=== PATIENT | female | born 1945 | race Caucasian/White ===

== ENCOUNTER 2017-03-10 11:15 | Observation (INO) | payer OTHER ==
[~2017-03-10] VITALS: Ht 170.2 cm; Wt 81.3 kg
--- NOTE | ~2017-03-10 | 2DMMODE ---
[facility] [address] [facility] [place] [address] 2 D/M-MODE ECHOCARDIOGRAM Name: RANJANA KOTHARI Room #: 308-P ADM IN M.R.#: [id number] Admission: 03/10/17 Attend Phys: Beth Mujica Discharge: Date of : 49 Date of Service: 03/11/17 1327 Report #: [id number] THIS REPORT FOR: //name// APPROVED REPORT Study performed: 03/11/2017 12:27:35 EXAM: Comprehensive 2D, Doppler, and color-flow Echocardiogram Patient Location: Echo lab Room #: 308 Status: routine Other Information Study Quality: Adequate Indications HTN, murmur, tachycardia, chest pain, DM 2D Dimensions RVDd: 35.60 mm LVEF(%): 53.34 (>50%) IVSd: 9.53 (7-11mm) LVOT Diam: 17.67 (18-24mm) LVDd: 46.33 mm PWd: 9.76 (7-11mm) Ascending Ao: 33.90 (22-36mm) LVDs: 33.63 (25-40mm) Aortic Root: 27.71 mm Trivedi's LVEF: 53.34 % Volumes Left Atrial Volume (Systole) Single Plane 4CH: 52.07 mL Single Plane 2CH: 53.71 mL LA ESV Index: 29.00 mL/m2 Aortic Valve AoV Peak Harsha.: 2.60 m/s AO Peak Gr.: 27.02 mmHg LVOT Max P.20 mmHg AO Mean Gr.: 15.63 mmHg AO V2 Mean: 1.91 m/s LVOT Max V: 1.25 m/s AO V2 VTI: 49.14 cm BROOK Vmax: 1.17 cm2 Mitral Valve E/A Ratio: 0.9 MV Decel. Time: 203.16 ms MV E Max Harsha.: 0.90 m/s MV A Harsha.: 1.00 m/s [facility] [address] [place] [address] 2 D/M-MODE ECHOCARDIOGRAM Name: RANJANA KOTHARI Room #: 308-P [facility] IN ..#: [id number] Admission: 03/10/17 Attend Phys: Beth Mujica Discharge: Date of : 49 Date of Service: 03/11/17 1327 Report #: [id number] MV PHT: 58.92 ms IVRT: 53.06 ms Pulmonary Valve PV Peak Harsha.: 0.92 m/s PV Peak Gr.: 3.36 mmHg Pulmonary Vein P Vein S: 0.82 m/s P Vein A: 0.40 m/s P Vein D: 0.53 m/s P Vein S/D Ratio: 1.55 Tricuspid Valve TR Peak Harsha.: 2.99 m/s RAP Estimate: 5.00 mmHg TR Peak Gr.: 35.70 mmHg PA Pressure: 41.00 mmHg Left Ventricle The left ventricle is normal size. There is normal LV segmental wall motion. There is normal left ventricular wall thickness. Left ventricular systolic function is normal. LVEF is 60%. Mild diastolic dysfunction is present (impaired relaxation pattern). Right Ventricle The right ventricle is normal size. The right ventricular systolic function is normal. Atria Left atrium is mildly dilated. The right atrium size is normal. Aortic Valve Aortic valve is moderately calcified. Trace aortic regurgitation. There is mild to moderate valvular aortic stenosis. Calculated aortic valve area is 1.2 cm2 with maximum pressure gradient of 27 mmHg and mean pressure gradient of 16 mmHg. Mitral Valve The mitral valve is normal in structure. Trace to mild mitral regurgitation. No evidence of mitral valve stenosis. Tricuspid Valve The tricuspid valve is normal in structure. There is mild tricuspid regurgitation. The right atrial pressure is estimated at 5 mmHg. There is mild-moderate pulmonary hypertension with an estimated PAP [place] 40[place]. [place] [address] 2 D/M-MODE ECHOCARDIOGRAM Name: RANJANA KOTHARI Room #: 308[facility] IN M.R.#: [id number] Admission: 03/10/17 Attend Phys: Beth Mujica Discharge: Date of : 49 Date of Service: 03/11/17 1327 Report #: [id number] Pulmonic Valve The pulmonary valve is normal in structure. Trace pulmonic regurgitation. Great Vessels The aortic root is normal in size. The ascending aorta is normal in size. IVC is normal in size and collapses >50% with inspiration. Pericardium There is no pericardial effusion. <Conclusion> The left ventricle is normal size. LVEF is 60%. Left atrium is mildly dilated. Aortic valve is moderately calcified. Trace aortic regurgitation. There is mild to moderate valvular aortic stenosis. Calculated aortic valve area is 1.2 cm2 with maximum pressure gradient of 27 mmHg and mean pressure gradient of 16 mmHg. The mitral valve is normal in structure. Trace to mild mitral regurgitation. The tricuspid valve is normal in structure. There is mild tricuspid regurgitation. The right atrial pressure is estimated at 5 mmHg. There is mild-moderate pulmonary hypertension with an estimated PAP of 40mmHg. Trace pulmonic regurgitation. <ELECTRONICALLY SIGNED> By: Cedric Aparicio MD 03/11/17 1327 26 132 Cedric Aparicio MD /INF
--- NOTE | ~2017-03-10 | EKG ---
[address] [address] ELECTROCARDIOGRAM REPORT Name: TAYERANJANA Room #: 308-P [facility] M.R.#: [id number] Admission: 03/10/17 Attend Phys: Beth Mujica MD Discharge: Date of : 49 Report #: [id number] THIS REPORT FOR: //name// [facility] ED Test Date: 2017-03-10 Test Time: 11:22:46 Pat Name: RANJANA KOTHARI Department: Room: [facility] Gender: F Utility Mechanic: KKODVIKIVI : 1945 Requested By: Evita Callahan Order Number: [id number] MD: Bennett Garcia Measurements Intervals [place] Rate: 110 P: 48 [place]: 147 QRS: 21 QRSD: 74 T: 269 QT: 339 QTc: 459 Interpretive Statements Sinus tachycardia Abnormal R-wave progression, early transition Nonspecific T abnormalities, diffuse leads Compared to ECG 12/02/2016 20:37:34 T-wave abnormality now present Atrial flutter no longer present ST (T wave) deviation no longer present Electronically Signed On 03-10-2017 22:01:35 CDT by Bennett Garcia [email or web address] <ELECTRONICALLY SIGNED> By: Bennett Garcia MD 03/10/17 2201 1122 1122 Bennett Garcia MD /EPI
--- NOTE | ~2017-03-10 | D ---
[facility] [place] [address] DISCHARGE SUMMARY Name: RANJANA KOTHARI Room #: 308-[facility] M.R.#: [id number] Admission: 03/10/17 Attend Phys: Beth Mujica MD Discharge: Date of : 49 Report #: [id number] THIS REPORT FOR: //name// CC: Stevie Mujica DATE OF ADMISSION: 03/10/2017 DATE OF DISCHARGE: 03/11/2017 HISTORY OF PRESENT ILLNESS: The patient is a 71-year-old female with multiple medical problems, who was transferred here from half-way facility for chest pains. The patient has history of coronary artery disease, and he has stents placed x 2. Please refer to the admission H and P for details. HOSPITALIZATION COURSE: The patient was hospitalized at [facility]. Report Writer was consulted. EKG was unremarkable, and cardiac enzymes are negative. Her personnel officer assessment, the patient's clinical presentation is atypical for acute coronary syndrome, and chest pain was reproducible. Cardiac echo is ordered. If negative, no further workup is planned. The patient remained stable overnight, and currently she is chest pain free. If cardiac echo is negative, the patient will be discharged back to half-way facility. DISCHARGE DIAGNOSES: Atypical chest pain, resolved. No evidence of acute coronary syndrome. Cardiac echo is pending at the time of this dictation. Likely etiology is musculoskeletal of GI origin. SECONDARY DIAGNOSES: History of coronary artery disease, status post stents x 2, seizure disorder, diabetes mellitus type 2, anxiety, schizophrenia, frequent falls, anemia, GERD, dyslipidemia, hypothyroidism. DISCHARGE MEDICATIONS: Same as admission medications, please refer to the medication reconciliation list. FOLLOWUP PLAN: Follow up with the primary care physician in 1-2 weeks. <ELECTRONICALLY SIGNED> By: Beth Mujica MD 03/11/17 1807 1158 1319 Beth Mujica MD /nt
[~2017-03-10 11:15] MED LIST: APAP500 PO; ARIPIPRAZOLE5 MG PO; BENADRYL25 MG PO; CARAFATE 1 GM TA1 G1 PO; CLARITIN10 MG PO; COLACE100 MG PO; COZAAR 25 MG TA25 M1 PO; CYCLOBENZAPRINE5 MG PO; FLONASE 0.05%50 MCG PO; FOLIC ACID1 MG PO; HUMALOG100 UNIT/1; IBUPROFEN 800800 M1 PO; IRON325 PO; KEPPRA 500 MG500 M1 PO; LANTUS100 UNIT/M SUBQ; LEVOTHYROXIN0.075 MG PO; LEXAPRO 10 MG T10 M1 PO; LIPITOR40 MG PO; LOTRISONE CREAM15 GM TOP; MAGNESIUM OXID400 MG PO; METFORMIN HCL500 MG PO; MILK OF MA2400 MG/10 PO; MIRALAX17 GM PO; MUSCLE RUB90 GM; NYAMYC15 GM; PATADAY2.5 ML OPHTHALMIC; PLAVIX 75 MG TA75 M1 PO; PROAIR HFA8.5 GM PO; PROBIOTIC1 EAC1 PO; PROTONIX40 M1 PO; SENNA8.6 MG PO; SIMETHICON CHEW80 M1 PO; TRAMADOL 50 MG50 MG PO; VITAMIN B-12500 MCG PO; VITAMIN D 5050000 I1 PO; ZOFRAN4 MG PO
[2017-03-10 11:16] VITALS: BP 96/58
[2017-03-10 12:55] LABS: ANION GAP 7 mmol/L (7-16); CHLORIDE 104 mmol/L (98-107); CO2 26 mmol/L (21-32); NT-PRO BRAIN NAT PEPTIDE 517 pg/mL (<300); POTASSIUM 4.6 mmol/L (3.5-5.1); SODIUM 137 mmol/L (136-145); TROPONIN-I < 0.04 ng/mL (<0.04-0.07)
[2017-03-10 13:16] LABS: ALBUMIN 2.4 g/dL (3.4-5.0); ALKALINE PHOSPHATASE 148 U/L (46-116); BUN 21 mg/dL (7-18); CALCIUM 9.1 mg/dL (8.5-10.1); CREATININE 1.1 mg/dL (0.6-1.0); GLUCOSE 157 mg/dL (74-106); SGOT 17 U/L (15-37); SGPT 13 U/L (30-65); TOTAL BILIRUBIN 0.2 mg/dL (<0.1-1.0); TOTAL PROTEIN 7.7 g/dL (6.4-8.2)
[2017-03-10 16:00] LABS: ABSOLUTE NEUTROPHILS 6.4 thou/uL (1.4-8.2); EOSINOPHILS 2.3 % (0.0-3.0); HEMATOCRIT 25.7 % (37.0-47.0); HEMOGLOBIN 8.2 gm/dL (12.0-15.0); LYMPHOCYTES 26.8 % (24.0-44.0); MCH 27.3 pg (26.0-34.0); MCHC 31.9 g/dL (28.0-37.0); MCV 85.5 fL (80.0-100.0); MONOCYTES 8.3 % (1.0-8.0); PLATELET COUNT 470 thou/uL (150-400); POLYS 61.6 % (36.0-66.0); RDW 15.5 % (10.5-14.5); WBC 10.4 thou/uL (4.0-11.0)
[2017-03-10 16:08] LABS: MANUAL DIFF NO
[2017-03-10 16:30] VITALS: BP 107/69
[2017-03-10 20:00] VITALS: BP 87/63
[2017-03-11] VITALS: BP 100/88
[2017-03-11 04:00] VITALS: BP 115/60
[2017-03-11 04:09] LABS: CALCIUM 8.5 mg/dL (8.5-10.1); CREATININE 0.8 mg/dL (0.6-1.0); POTASSIUM 4.6 mmol/L (3.5-5.1)
[2017-03-11 04:16] LABS: CHOLESTEROL 84 mg/dL (<200); HDL CHOLESTEROL 43 mg/dL (>40); LDL CHOLESTEROL 27 mg/dL (<100); TRIGLYCERIDE 71 mg/dL (<150); VLDL 14 mg/dL (<40)
[2017-03-11 04:17] LABS: SERUM ASSESSMENT Clear
[2017-03-11 07:35] VITALS: BP 115/60
[2017-03-11 16:44] VITALS: BP 120/60
[2017-03-11 20:05] VITALS: BP 118/61
[2017-03-12 04:20] VITALS: BP 122/66
[2017-03-12 07:22] VITALS: BP 115/66
== END 2017-03-12 15:57 ==
LOC: ER 11:15 → EROBS 14:07 → 3N 16:28
PROVIDERS: Emergency Medicine; Nurse Practitioner; Nurse Practitioner Family
DX: R07.89 Other chest pain (principal); E86.0 Dehydration; I95.9 Hypotension, unspecified; E11.9 Type 2 diabetes mellitus without complications; I25.10 Atherosclerotic heart disease of native coronary artery without angina pectoris; D64.9 Anemia, unspecified; K59.00 Constipation, unspecified; E03.9 Hypothyroidism, unspecified; K21.9 Gastro-esophageal reflux disease without esophagitis; R56.9 Unspecified convulsions; F17.210 Nicotine dependence, cigarettes, uncomplicated; Z95.5 Presence of coronary angioplasty implant and graft

== ENCOUNTER 2017-04-12 12:43 | Inpatient (IN) | payer OTHER ==
[~2017-04-12] VITALS: Ht 170.2 cm; Wt 78.5 kg
--- NOTE | ~2017-04-12 | EKG ---
[address] [address] ELECTROCARDIOGRAM REPORT Name: RANJANA KOTHARI Room #: 443-P ADM IN M.R.#: [id number] Admission: 04/12/17 Attend Phys: Lester Greer MD Discharge: Date of : 49 Report #: [id number] THIS REPORT FOR: //name// [facility] ED Test Date: 2017-04-12 Test Time: 14:04:45 Pat Name: RANJANA KOTHARI Department: Room: 44 Gender: F [employer] Machine Feeder: CONSTANZA : 1945 Requested By: Kristian Neal Order Number: [id number] MD: Bennett Garcia Measurements Intervals [place] Rate: 111 P: 5 KS: 136 QRS: 27 QRSD: 76 T: -62 QT: 300 QTc: 408 Interpretive Statements Sinus tachycardia Abnormal R-wave progression, early transition Borderline repolarization abnormality Compared to ECG 03/10/2017 11:22:46 T-wave abnormality no longer present Electronically Signed On 04-12-2017 22:30:56 CDT by Bennett Garcia [email or web address] <ELECTRONICALLY SIGNED> By: Bennett Garcia MD 04/12/17 2230 1404 1404 Bennett Garcia MD /EPI
[2017-04-12 12:45] VITALS: BP 128/67
[2017-04-12 16:10] LABS: ABSOLUTE NEUTROPHILS 6.2 thou/uL (1.4-8.2); BASOPHILS 1.2 % (0.0-2.0); EOSINOPHILS 1.3 % (0.0-3.0); HEMATOCRIT 25.9 % (37.0-47.0); HEMOGLOBIN 8.3 gm/dL (12.0-15.0); LYMPHOCYTES 23.2 % (24.0-44.0); MCH 26.7 pg (26.0-34.0); MCV 83.6 fL (80.0-100.0); MONOCYTES 9.6 % (1.0-8.0); PLATELET COUNT 588 thou/uL (150-400); POLYS 64.7 % (36.0-66.0); RDW 15.1 % (10.5-14.5); WBC 9.5 thou/uL (4.0-11.0)
[2017-04-12 16:17] LABS: URINE BILIRUBIN NEGATIVE (Negative); URINE BLOOD NEGATIVE (Negative); URINE COLOR YELLOW; URINE GLUCOSE-RANDOM* 1+ (Negative); URINE KETONES NEGATIVE (Negative); URINE NITRITE NEGATIVE (Negative); URINE PROTEIN (DIPSTICK) NEGATIVE (Negative); URINE UROBILINOGEN 0.2 E.U./dl (0.2-1.0)
[2017-04-12 16:17] LABS: MANUAL DIFF NO
[2017-04-12 16:20] LABS: CREATININE 0.9 mg/dL (0.6-1.0); POTASSIUM 4.5 mmol/L (3.5-5.1)
[2017-04-12 18:37] VITALS: BP 138/54
[2017-04-12 19:28] VITALS: BP 138/49
[2017-04-12] MEDS ORDERED: DOXYCYCLINE 10100 MG PO (19:39)
[2017-04-13 04:40] VITALS: BP 117/59
[2017-04-13 05:58] LABS: HEMOGLOBIN 7.1 gm/dL (12.0-15.0); MCH 26.8 pg (26.0-34.0); MCHC 32.2 g/dL (28.0-37.0); MCV 83.1 fL (80.0-100.0); RBC 2.65 mil/uL (4.20-5.00); RDW 14.8 % (10.5-14.5); WBC 6.7 thou/uL (4.0-11.0)
[2017-04-13 06:11] LABS: ALBUMIN 1.6 g/dL (3.4-5.0); CALCIUM 8.3 mg/dL (8.5-10.1); CREATININE 0.8 mg/dL (0.6-1.0); POTASSIUM 3.9 mmol/L (3.5-5.1); TOTAL BILIRUBIN 0.1 mg/dL (<0.1-1.0); TOTAL PROTEIN 6.1 g/dL (6.4-8.2)
[2017-04-13 09:33] VITALS: BP 97/69
[2017-04-13 15:43] VITALS: BP 116/83
[2017-04-13 19:22] VITALS: BP 132/78
[2017-04-14 04:07] VITALS: BP 123/55
[2017-04-14 06:39] LABS: WBC 6.8 thou/uL (4.0-11.0)
[2017-04-14 06:42] LABS: HEMATOCRIT 21.9 % (37.0-47.0); MCH 26.5 pg (26.0-34.0); MCHC 31.8 g/dL (28.0-37.0); MCV 83.4 fL (80.0-100.0); RBC 2.63 mil/uL (4.20-5.00)
[2017-04-14 08:00] VITALS: BP 99/48
[2017-04-14 16:00] VITALS: BP 107/47
[2017-04-14 19:45] VITALS: BP 107/44
[2017-04-15 03:56] VITALS: BP 90/43
[2017-04-15 08:00] VITALS: BP 143/70
[2017-04-15 12:25] LABS: HEMOGLOBIN 7.3 gm/dL (12.0-15.0); MCH 26.4 pg (26.0-34.0); MCHC 31.8 g/dL (28.0-37.0); RBC 2.77 mil/uL (4.20-5.00); RDW 15.3 % (10.5-14.5); WBC 7.2 thou/uL (4.0-11.0)
[2017-04-15 12:37] LABS: CALCIUM 8.9 mg/dL (8.5-10.1); POTASSIUM 4.3 mmol/L (3.5-5.1)
[2017-04-15 12:42] LABS: % SATURATION 20 % (20-39); IRON 43 ug/dL (50-170); TIBC 214 ug/dL (250-450); UIBC 171 ug/dL
[2017-04-15 14:56] VITALS: BP 124/51
[2017-04-15 19:40] VITALS: BP 133/68
[2017-04-16 03:15] VITALS: BP 137/77
[2017-04-16 06:35] LABS: HEMATOCRIT 23.8 % (37.0-47.0); HEMOGLOBIN 7.6 gm/dL (12.0-15.0); MCH 26.5 pg (26.0-34.0); MCHC 31.9 g/dL (28.0-37.0); MCV 83.3 fL (80.0-100.0); RBC 2.86 mil/uL (4.20-5.00); RDW 15.2 % (10.5-14.5); WBC 7.5 thou/uL (4.0-11.0)
[2017-04-16 06:44] LABS: CALCIUM 9.3 mg/dL (8.5-10.1); CREATININE 0.9 mg/dL (0.6-1.0); POTASSIUM 4.5 mmol/L (3.5-5.1)
[2017-04-16 07:20] VITALS: BP 144/78
[2017-04-16 16:13] VITALS: BP 123/66
[2017-04-16 20:15] VITALS: BP 123/76
[2017-04-17 04:01] VITALS: BP 117/56
[2017-04-17 06:48] LABS: HEMATOCRIT 22.6 % (37.0-47.0); HEMOGLOBIN 7.3 gm/dL (12.0-15.0); MCH 26.8 pg (26.0-34.0); MCHC 32.2 g/dL (28.0-37.0); RBC 2.72 mil/uL (4.20-5.00); RDW 15.1 % (10.5-14.5); WBC 9.1 thou/uL (4.0-11.0)
[2017-04-17 07:15] LABS: CALCIUM 8.8 mg/dL (8.5-10.1); CREATININE 0.9 mg/dL (0.6-1.0); POTASSIUM 4.9 mmol/L (3.5-5.1)
[2017-04-17 07:35] VITALS: BP 140/91
[2017-04-17 15:57] VITALS: BP 125/71
[2017-04-17 21:12] VITALS: BP 141/90
[2017-04-18 04:56] VITALS: BP 121/62
[2017-04-18 08:00] VITALS: BP 124/61
[2017-04-18 11:55] LABS: HEMATOCRIT 23.8 % (37.0-47.0); HEMOGLOBIN 7.6 gm/dL (12.0-15.0); MCH 26.5 pg (26.0-34.0); MCHC 31.9 g/dL (28.0-37.0); MCV 83.2 fL (80.0-100.0); RBC 2.86 mil/uL (4.20-5.00); RDW 15.4 % (10.5-14.5); WBC 9.3 thou/uL (4.0-11.0)
[2017-04-18 12:09] LABS: CALCIUM 9.1 mg/dL (8.5-10.1); CREATININE 0.9 mg/dL (0.6-1.0); POTASSIUM 4.4 mmol/L (3.5-5.1)
[2017-04-18 16:00] VITALS: BP 143/87
[2017-04-18 20:06] VITALS: BP 138/76
[2017-04-19 04:20] VITALS: BP 117/55
[2017-04-19 06:53] LABS: ABSOLUTE NEUTROPHILS 5.6 thou/uL (1.4-8.2); BASOPHILS 1.3 % (0.0-2.0); EOSINOPHILS 3.9 % (0.0-3.0); HEMATOCRIT 23.4 % (37.0-47.0); HEMOGLOBIN 7.6 gm/dL (12.0-15.0); LYMPHOCYTES 22.9 % (24.0-44.0); MCH 26.7 pg (26.0-34.0); MCHC 32.4 g/dL (28.0-37.0); MCV 82.3 fL (80.0-100.0); MONOCYTES 8.4 % (1.0-8.0); PLATELET COUNT 522 thou/uL (150-400); POLYS 63.5 % (36.0-66.0); RBC 2.84 mil/uL (4.20-5.00); RDW 15.3 % (10.5-14.5); WBC 8.8 thou/uL (4.0-11.0)
[2017-04-19 06:54] LABS: CALCIUM 9.2 mg/dL (8.5-10.1); CREATININE 0.8 mg/dL (0.6-1.0); MANUAL DIFF NO
[2017-04-19 07:57] LABS: ALBUMIN 2.2 g/dL (3.4-5.0); DIRECT BILIRUBIN 0.1 mg/dL (<0.1-0.3); MAGNESIUM 2.4 mg/dL (1.8-2.4); PHOSPHORUS 4.6 mg/dL (2.5-4.9); TOTAL BILIRUBIN 0.3 mg/dL (<0.1-1.0); TOTAL PROTEIN 7.4 g/dL (6.4-8.2)
[2017-04-19 08:00] VITALS: BP 129/69
[2017-04-19 16:00] VITALS: BP 123/61
[2017-04-19 19:45] VITALS: BP 136/62
[2017-04-20 03:50] VITALS: BP 142/64
[2017-04-20 04:36] LABS: MAGNESIUM 2.3 mg/dL (1.8-2.4); PHOSPHORUS 3.9 mg/dL (2.5-4.9)
[2017-04-20 08:00] VITALS: BP 111/58
[2017-04-20 08:26] LABS: CALCIUM 9.1 mg/dL (8.5-10.1); CREATININE 0.7 mg/dL (0.6-1.0); POTASSIUM 4.1 mmol/L (3.5-5.1)
[2017-04-20 16:00] VITALS: BP 129/68
[2017-04-20 19:15] VITALS: BP 127/63
[2017-04-21 03:44] VITALS: BP 108/80
[2017-04-21 07:11] LABS: CALCIUM 9.1 mg/dL (8.5-10.1); CREATININE 0.7 mg/dL (0.6-1.0)
[2017-04-21 08:00] VITALS: BP 112/69
[2017-04-21] MEDS ORDERED: TRAMADOL 50 MG50 MG PO (09:06)
[2017-04-21 16:00] VITALS: BP 114/69
[2017-04-21 20:19] VITALS: BP 109/54
[2017-04-22 03:31] VITALS: BP 122/57
[2017-04-22 08:00] VITALS: BP 113/61
[2017-04-22 16:00] VITALS: BP 110/63
[2017-04-22 19:10] VITALS: BP 131/71
[2017-04-23 04:09] VITALS: BP 105/46
[2017-04-23 07:09] LABS: CALCIUM 9.2 mg/dL (8.5-10.1); CREATININE 0.7 mg/dL (0.6-1.0); POTASSIUM 4.5 mmol/L (3.5-5.1)
[2017-04-23 08:04] VITALS: BP 112/48
[2017-04-23 15:28] VITALS: BP 145/72
[2017-04-23 19:40] VITALS: BP 119/50
[2017-04-24 04:48] VITALS: BP 134/60
[2017-04-24 07:09] LABS: HEMATOCRIT 26.2 % (37.0-47.0); HEMOGLOBIN 8.4 gm/dL (12.0-15.0); MCH 26.8 pg (26.0-34.0); RBC 3.12 mil/uL (4.20-5.00); RDW 16.4 % (10.5-14.5)
[2017-04-24 07:25] LABS: ALBUMIN 2.4 g/dL (3.4-5.0); CALCIUM 9.6 mg/dL (8.5-10.1); CREATININE 0.7 mg/dL (0.6-1.0); MAGNESIUM 2.4 mg/dL (1.8-2.4); POTASSIUM 4.6 mmol/L (3.5-5.1); TOTAL BILIRUBIN 0.2 mg/dL (<0.1-1.0); TOTAL PROTEIN 7.8 g/dL (6.4-8.2)
[2017-04-24 08:00] VITALS: BP 110/58
[2017-04-24 15:54] VITALS: BP 106/50
[2017-04-24 19:11] VITALS: BP 147/69
[2017-04-25 05:04] VITALS: BP 111/45
[2017-04-25 06:52] LABS: HEMATOCRIT 25.2 % (37.0-47.0); HEMOGLOBIN 8.1 gm/dL (12.0-15.0); MCH 26.8 pg (26.0-34.0); MCHC 32.1 g/dL (28.0-37.0); MCV 83.5 fL (80.0-100.0); RBC 3.02 mil/uL (4.20-5.00); RDW 16.8 % (10.5-14.5); WBC 9.2 thou/uL (4.0-11.0)
[2017-04-25 07:00] LABS: CALCIUM 9.2 mg/dL (8.5-10.1); CREATININE 0.7 mg/dL (0.6-1.0); MANUAL DIFF YES; POTASSIUM 4.6 mmol/L (3.5-5.1)
[2017-04-25 07:18] VITALS: BP 141/70
[2017-04-25 08:00] VITALS: BP 141/70
[2017-04-25 08:00] LABS: PLATELET COUNT 523 thou/uL (150-400)
[2017-04-25 08:02] LABS: ABSOLUTE NEUTROPHILS 7.4 thou/uL (1.4-8.2); ANISOCYTOSIS 2+; POLYCHROMASIA OCCASIONAL; TOTAL CELL COUNT 100
[2017-04-25 16:23] VITALS: BP 117/63
[2017-04-25 19:50] VITALS: BP 109/59
[2017-04-26 04:52] VITALS: BP 115/55
[2017-04-26 07:40] LABS: HEMATOCRIT 25.6 % (37.0-47.0); HEMOGLOBIN 8.3 gm/dL (12.0-15.0); MCH 27.2 pg (26.0-34.0); MCHC 32.2 g/dL (28.0-37.0); MCV 84.5 fL (80.0-100.0); PLATELET COUNT 537 thou/uL (150-400); RBC 3.03 mil/uL (4.20-5.00); RDW 17.4 % (10.5-14.5); WBC 9.1 thou/uL (4.0-11.0)
[2017-04-26 07:42] LABS: MANUAL DIFF YES
[2017-04-26 07:54] LABS: ALBUMIN 2.4 g/dL (3.4-5.0); CALCIUM 9.4 mg/dL (8.5-10.1); CREATININE 0.7 mg/dL (0.6-1.0); POTASSIUM 4.1 mmol/L (3.5-5.1); TOTAL BILIRUBIN 0.2 mg/dL (<0.1-1.0); TOTAL PROTEIN 7.6 g/dL (6.4-8.2)
[2017-04-26 08:02] LABS: ABSOLUTE NEUTROPHILS 6.1 thou/uL (1.4-8.2); NUCLEATED RBCS 1 /100WBC; PLATELET ESTIMATE INCREASED; TOTAL CELL COUNT 100
[2017-04-26 08:30] VITALS: BP 108/62
[2017-04-26 16:09] VITALS: BP 105/51
[2017-04-26 19:48] VITALS: BP 122/59
[2017-04-27 04:29] VITALS: BP 135/60
[2017-04-27 05:49] LABS: PHOSPHORUS 3.1 mg/dL (2.5-4.9)
[2017-04-27 08:00] VITALS: BP 98/41
[2017-04-27 16:00] VITALS: BP 129/74
[2017-04-27 19:39] VITALS: BP 116/69
[2017-04-28 04:22] VITALS: BP 104/66
[2017-04-28 05:31] LABS: BASOPHILS 1.4 % (0.0-2.0); HEMATOCRIT 22.5 % (37.0-47.0); HEMOGLOBIN 7.4 gm/dL (12.0-15.0); LYMPHOCYTES 26.5 % (24.0-44.0); MCH 27.6 pg (26.0-34.0); MCHC 32.9 g/dL (28.0-37.0); MONOCYTES 10.2 % (1.0-8.0); POLYS 58.9 % (36.0-66.0); RBC 2.68 mil/uL (4.20-5.00); RDW 16.8 % (10.5-14.5); WBC 6.8 thou/uL (4.0-11.0)
[2017-04-28 05:38] LABS: MANUAL DIFF NO; PLATELET COUNT 421 thou/uL (150-400)
[2017-04-28 05:52] LABS: CREATININE 0.6 mg/dL (0.6-1.0); POTASSIUM 4.4 mmol/L (3.5-5.1)
[2017-04-28 08:43] VITALS: BP 129/70
[2017-04-28 16:02] VITALS: BP 120/61
[2017-04-28 19:36] VITALS: BP 121/58
[2017-04-29 06:35] LABS: ABSOLUTE NEUTROPHILS 4.3 thou/uL (1.4-8.2); BASOPHILS 1.8 % (0.0-2.0); EOSINOPHILS 5.7 % (0.0-3.0); HEMATOCRIT 24.9 % (37.0-47.0); HEMOGLOBIN 8.1 gm/dL (12.0-15.0); MCHC 32.3 g/dL (28.0-37.0); MCV 83.5 fL (80.0-100.0); MONOCYTES 8.8 % (1.0-8.0); PLATELET COUNT 471 thou/uL (150-400); POLYS 56.7 % (36.0-66.0); RBC 2.99 mil/uL (4.20-5.00); RDW 16.5 % (10.5-14.5); WBC 7.6 thou/uL (4.0-11.0)
[2017-04-29 06:36] VITALS: BP 118/54
[2017-04-29 06:36] LABS: MANUAL DIFF NO
[2017-04-29 06:48] LABS: CALCIUM 9.5 mg/dL (8.5-10.1); CREATININE 0.7 mg/dL (0.6-1.0); MAGNESIUM 2.1 mg/dL (1.8-2.4); PHOSPHORUS 3.4 mg/dL (2.5-4.9); POTASSIUM 4.5 mmol/L (3.5-5.1)
[2017-04-29 07:54] VITALS: BP 121/60
[2017-04-29 15:48] VITALS: BP 131/68
[2017-04-29 20:41] VITALS: BP 148/75
[2017-04-30 03:42] VITALS: BP 123/61
[2017-04-30 08:00] VITALS: BP 98/82
[2017-04-30 16:00] VITALS: BP 101/52
[2017-04-30 20:00] VITALS: BP 96/54
[2017-05-01 03:55] VITALS: BP 127/55
[2017-05-01 07:10] LABS: CALCIUM 9.4 mg/dL (8.5-10.1); CREATININE 0.7 mg/dL (0.6-1.0); MAGNESIUM 2.3 mg/dL (1.8-2.4); PHOSPHORUS 4.6 mg/dL (2.5-4.9); POTASSIUM 4.8 mmol/L (3.5-5.1)
[2017-05-01 07:42] VITALS: BP 106/51
[2017-05-01 16:09] VITALS: BP 112/54
[2017-05-01 19:30] VITALS: BP 108/52
[2017-05-02 01:30] LABS: URINE BILIRUBIN NEGATIVE (Negative); URINE BLOOD 3+ (Negative); URINE GLUCOSE-RANDOM* NEGATIVE (Negative); URINE KETONES NEGATIVE (Negative); URINE NITRITE NEGATIVE (Negative); URINE PROTEIN (DIPSTICK) TRACE (Negative); URINE UROBILINOGEN 0.2 E.U./dl (0.2-1.0)
[2017-05-02 01:34] LABS: URINE COLOR SL PINK
[2017-05-02 04:29] VITALS: BP 100/48
[2017-05-02 05:09] LABS: RENAL EPITHELIAL CELLS 0-3 Few /LPF (None Seen); SQUAMOUS >10 Many /LPF (0-3); URINE RBC >20 Many /HPF (0-2)
[2017-05-02 05:10] LABS: AMORPHOUS URATES Few /LPF (None Seen); BACTERIA 1-9 Few /HPF (None Seen); CASTS None Seen /LPF (None Seen); URINE WBC 0-5 Rare /HPF (0-5)
[2017-05-02 07:08] LABS: CALCIUM 9.4 mg/dL (8.5-10.1); CREATININE 0.7 mg/dL (0.6-1.0); MAGNESIUM 2.3 mg/dL (1.8-2.4); PHOSPHORUS 3.8 mg/dL (2.5-4.9); POTASSIUM 4.7 mmol/L (3.5-5.1)
[2017-05-02 08:00] VITALS: BP 113/52
[2017-05-02 16:00] VITALS: BP 114/52
[2017-05-02 20:30] VITALS: BP 115/66
[2017-05-03 04:20] VITALS: BP 107/57
[2017-05-03 08:00] VITALS: BP 131/59
[2017-05-03 15:25] VITALS: BP 133/64
[2017-05-03 19:39] VITALS: BP 119/57
[2017-05-04 05:50] VITALS: BP 107/49
[2017-05-04 07:09] LABS: ABSOLUTE NEUTROPHILS 4.8 thou/uL (1.4-8.2); BASOPHILS 1.2 % (0.0-2.0); EOSINOPHILS 1.7 % (0.0-3.0); HEMATOCRIT 23.5 % (37.0-47.0); HEMOGLOBIN 7.6 gm/dL (12.0-15.0); LYMPHOCYTES 24.9 % (24.0-44.0); MCH 27.3 pg (26.0-34.0); MCHC 32.3 g/dL (28.0-37.0); MCV 84.6 fL (80.0-100.0); MONOCYTES 8.2 % (1.0-8.0); PLATELET COUNT 343 thou/uL (150-400); RBC 2.77 mil/uL (4.20-5.00); RDW 16.9 % (10.5-14.5); WBC 7.5 thou/uL (4.0-11.0)
[2017-05-04 07:11] LABS: MANUAL DIFF NO
[2017-05-04 07:41] LABS: ALBUMIN 2.4 g/dL (3.4-5.0); CALCIUM 9.3 mg/dL (8.5-10.1); CREATININE 0.7 mg/dL (0.6-1.0); POTASSIUM 4.1 mmol/L (3.5-5.1); TOTAL BILIRUBIN 0.1 mg/dL (<0.1-1.0); TOTAL PROTEIN 7.1 g/dL (6.4-8.2)
[2017-05-04 07:57] VITALS: BP 130/61
[2017-05-04 15:15] VITALS: BP 149/78
[2017-05-04 19:32] VITALS: BP 142/67
[2017-05-05 04:25] VITALS: BP 111/54
[2017-05-05 07:37] VITALS: BP 121/59
[2017-05-05 16:04] VITALS: BP 113/71
[2017-05-05 19:21] VITALS: BP 119/61
[2017-05-06 03:18] VITALS: BP 114/57
[2017-05-06 05:57] LABS: CALCIUM 9.2 mg/dL (8.5-10.1); CREATININE 0.6 mg/dL (0.6-1.0); MAGNESIUM 2.1 mg/dL (1.8-2.4); PHOSPHORUS 3.6 mg/dL (2.5-4.9); POTASSIUM 4.4 mmol/L (3.5-5.1)
[2017-05-06 08:00] VITALS: BP 93/53
[2017-05-06 13:15] VITALS: BP 135/56
== END 2017-05-06 14:11 | DRG 393 ==
LOC: ER 12:43 → 4S 15:58 → EROBS 15:58 → 4S 18:34
PROVIDERS: Emergency Medicine; Family Medicine; Internal Medicine; Internal Medicine Infectious Disease; Nurse Practitioner Family
PROC: 05H533Z Insertion of Infusion Device into Right Subclavian Vein, Percutaneous Approach (ICD-10-PCS; 2017-04-12)
PROC: B546ZZA Ultrasonography of Right Subclavian Vein, Guidance (ICD-10-PCS; 2017-04-12)
PROC: 02HV33Z Insertion of Infusion Device into Superior Vena Cava, Percutaneous Approach (ICD-10-PCS; 2017-04-18)
PROC: 3E0336Z Introduction of Nutritional Substance into Peripheral Vein, Percutaneous Approach (ICD-10-PCS; principal; 2017-04-19)
DX: K63.2 Fistula of intestine (principal); E43 Unspecified severe protein-calorie malnutrition; D62 Acute posthemorrhagic anemia; L03.90 Cellulitis, unspecified; K56.7 Ileus, unspecified; I10 Essential (primary) hypertension; F20.9 Schizophrenia, unspecified; E03.9 Hypothyroidism, unspecified; G40.909 Epilepsy, unspecified, not intractable, without status epilepticus; M19.90 Unspecified osteoarthritis, unspecified site; E11.51 Type 2 diabetes mellitus with diabetic peripheral angiopathy without gangrene; K21.9 Gastro-esophageal reflux disease without esophagitis; E78.00 Pure hypercholesterolemia, unspecified; F41.9 Anxiety disorder, unspecified; J45.909 Unspecified asthma, uncomplicated; L25.9 Unspecified contact dermatitis, unspecified cause; M25.512 Pain in left shoulder; K59.00 Constipation, unspecified; G89.29 Other chronic pain; M54.2 Cervicalgia; Z90.49 Acquired absence of other specified parts of digestive tract; Z90.710 Acquired absence of both cervix and uterus; Z88.2 Allergy status to sulfonamides; Z68.27 Body mass index [BMI] 27.0-27.9, adult; Z88.1 Allergy status to other antibiotic agents; Z88.5 Allergy status to narcotic agent; Z88.8 Allergy status to other drugs, medicaments and biological substances; Z87.891 Personal history of nicotine dependence
CPT/HCPCS: 10195; 27000; 27001

== ENCOUNTER 2017-09-01 05:21 | Inpatient (IN) | payer OTHER ==
[~2017-09-01] VITALS: Ht 170.2 cm; Wt 93.9 kg
[2017-09-01] VITALS (13 sets, daily range): BP systolic 95–120; BP diastolic 35–59
--- NOTE | ~2017-09-01 | D ---
[facility] [place] [address] DISCHARGE SUMMARY Name: RANJANA KOTHARI Room #: 213-P ADM IN M.R.#: [id number] Admission: 09/01/17 Attend Phys: Rogelio Schwarzt MD Discharge: Date of : 49 Report #: [id number] THIS REPORT FOR: //name// CC: Rogelio LARES unknown DATE OF SERVICE: 09/18/2017 HISTORY OF PRESENT ILLNESS: The patient is a 72-year-old female with complicated past medical history, status post multiple abdominal surgeries in the past. The patient was admitted here for enterocutaneous fistula, that was nonhealing. HOSPITALIZATION COURSE: The patient was found to be hypotensive on admission, therefore she was treated with IV pressors. For peritonitis, initially she was treated with Cipro and Flagyl. The patient was seen by general surgeon. Infectious disease specialist was also consulted. The patient had exploratory laparotomy with reversal of the enterocutaneous fistula on 09/02/2017. She did well. Peritoneal washout grew Streptococcus group B, MRSA, and VRE. The patient was treated with Zyvox, meropenem, and micafungin. Eventually, the patient's condition improved, and blood pressure normalized. Meropenem and micafungin was discontinued. The patient was started on feeding. She remains lethargic and confused at times, so she needs some encouragement. TPN rate is significantly reduced. The patient continues to do well, TPN will be discontinued. The patient had no major complications, except the minor drainage from the surgical wound. CT scan of the abdomen was performed yesterday on 09/16/2017, that showed no major fluid collection. There is no recurrent fistula. Transferring the patient to the long-term acute care facility was requested few days ago, but this was denied by the patient's insurance. Currently, the patient is medically stable. Since she started taking food, medications are converted to the p.o. TPN will be discontinued shortly, as the patient's p.o. intake is established. Currently, the patient's condition is acceptable, for her to go to the fdc facility. Given the complexity of her condition, risk of the recurrent hospitalization remains high. DISCHARGE DIAGNOSES: 1. Enterocutaneous fistula, status post exploratory laparotomy and reversal of the enterocutaneous fistula on 09/02/2017. [address] [address] DISCHARGE SUMMARY Name: RANJANA KOTHARI Room #: 213-P [facility] IN M.R.#: [id number] Admission: 09/01/17 Attend Phys: Rogelio Schwartz MD Discharge: Date of : 49 Report #: [id number] 2. Peritonitis due to group B streptococcus, Methicillin-resistant Staphylococcus aureus and vancomycin-resistant Enterococcus. The patient was treated with meropenem, micafungin and Zyvox. The patient will continue oral Zyvox for next few days. 3. Borderline elevation in troponin, sinus tachycardia. No myocardial ischemia. 4. Respiratory failure, resolved. 5. Diabetes mellitus type 2. 6. Anemia, multifactorial, including blood loss anemia. Hemoglobin remained stable at 7.7. 7. Malnutrition. P.o. intake is established, and TPN will be discontinued shortly. 8. Peripheral vascular disease. 9. Depression and anxiety. 10. Schizophrenia. 11. Seizure disorder, stable. DISCHARGE MEDICATIONS: Please refer to the medication reconciliation list. DISPOSITION: The patient will be discharged to the fdc facility. FOLLOWUP PLAN: 1. Follow up in general surgery clinic and infectious disease clinic as advised. 2. Follow up with primary care physician in 1-2 weeks. I spent more than 40 minutes to coordinate the patient's discharge from the hospital. By: 1155 1332 Beth Mujica MD /nt
--- NOTE | ~2017-09-01 | EKG ---
[address] [address] ELECTROCARDIOGRAM REPORT Name: RANJANA KOTHARI Room #: 150-2 ADM IN M.R.#: [id number] Admission: 09/01/17 Attend Phys: Renan Salas MD, F Discharge: Date of : 49 Report #: [id number] THIS REPORT FOR: //name// [facility] Test Date: 2017-09-01 Test Time: 15:19:35 Pat Name: RANJANA KOTHARI Department: Room: 150 2 Gender: F Customs Entry Writer: Eilnor TILLEY : 1945 Requested By: Zeke Reyes Order Number: [id number] MD: Bennett Garcia Measurements Intervals [place] Rate: 109 P: -25 [place]: 152 QRS: 36 QRSD: 81 T: 192 QT: 365 QTc: 492 Interpretive Statements Sinus tachycardia Borderline low voltage, extremity leads Compared to ECG 04/12/2017 14:04:45 Electronically Signed On 09-01-2017 16:51:38 PRIMARY CARE NURSE PRACTITIONER by Bennett Garcia [email or web address] <ELECTRONICALLY SIGNED> By: Bennett Garcia MD 09/01/17 1651 1519 1519 Bennett Garcia MD /REVA
--- NOTE | ~2017-09-01 | S ---
[facility] [place] [address] SURGICAL PATH RPT PROCEDURE Name: RANJANA KOTHARI Room #: 247-P ADM IN M.R.#: [id number] Admission: 09/01/17 Date of : 49 Discharge: Report #: [id number] Path Case #: [id number] PATHOLOGY REPORT COLLECTION DATE: 09/01/2017 RECEIVED DATE: 09/01/2017 SUBMITTING PHYS: Dr. Renan Salas OTHER PHYS: Dr. Emanuel Nunez, SPECIMEN(S) RECEIVED: A.Mid ileum long suture proximal B.Distal ileum long suture proximal C.Abdominal wall mesh * * * * * * * * * * * * FINAL DIAGNOSIS: A. "Mid ileum long suture proximal", resection: - Small bowel mucosa, submucosa and muscular wall with enterocutaneous fistula showing acute and chronic inflammation, necrosis, granulation tissue, fibrosis, and pseudoepitheliomatous hyperplasia; surgical margins without significant inflammation. B. "Distal ileum long suture proximal", resection: - Small bowel mucosa, submucosa and muscular wall with subserosal acute and chronic inflammation, necrosis, granulation tissue, fibrosis, and foreign body type granulomatous response to synthetic mesh material; surgical margins with mild subserosal acute and chronic inflammation. C. "Abdominal wall mesh", excision: - Fibroadipose connective tissue with synthetic mesh type material, fibrosis, acute and chronic inflammation, and reactive changes. (CLW:shanelle; 09/03/2017) PATHOLOGIST: Nikia L. Ruben, M.D. REPORT ELECTRONICALLY SIGNED BY: Nikia Miranda M.D. DATE/TIME: 09/03/2017 16:38 * * * * * * * * * * * * GROSS PATHOLOGY: A. Received in formalin labeled "mid ileum, long stitch proximal" and consists of an unopened side to side anastomosis specimen. This consists of a segment of intestine that measures 10.0 cm in length anastomose to a second segment that measures 14.0 cm in length. There are 2 staple lines present with one end identified as proximal via a long suture. There are thick dark red maroon serosal adhesions at the anastomosis serosal surface that measures 4.0 x 3.0 cm. There is no skin identified at this site. Elsewhere, the serosa shows [facility] [address] [place] [address] SURGICAL PATH RPT PROCEDURE Name: RANJANA KOTHARI Room #: 247-P ADM IN M.R.#: [id number] Admission: 09/01/17 Date of : 49 Discharge: Report #: [id number] Path Case #: [id number] thick patton pink and maroon adhesions. The specimen is opened. The anastomosis is circumferential and appears grossly intact. The mucosa is hyperemic and edematous. There are no mucosal masses or lesions identified. Digital Imager sections are submitted A1-A6. A1 proximal margin A2 distal margin A3-A4 thick serosal adhesions at anastomosis A5 anastomosis A6 transmural sections, loss control representative B. Received in formalin labeled "distal ileum, suture is proximal" and consists of an unopened segment of small intestine that measures 7.0 cm in length by 2.5 cm in diameter. There is mesentery extending the entire length of specimen that measures 2.7 cm thick. There is a suture present at one end identifying proximal. The distal end demonstrates markedly indurated, patton, pink, and dark red maroon serosal adhesions. The adhesions measure 3.0 x 2.5 x 2.2 cm. This area is inked black. Sectioning this area reveals underlying patton-white cut surfaces and a texture resembling mesh. The remaining serosa is smooth to roughened and guillermina to patton. The segment is opened longitudinally. The mucosa is cummings, green, and hyperemic. There are minimal folds and no masses identified. Digital Imager sections are submitted B1-B6. B1 proximal margin B2 distal margin B3-B4 sections in area of thick serosal adhesions B5-B6 random transmural sections C. Received in formalin labeled "abdominal wall mesh" and consists of an elongate and irregularly-shaped a portion of synthetic material consistent with mesh that measures 41.0 cm in length, 0.5-7 cm wide, and averaging 0.4 cm thick. There is pinkish patton and brown fibrous tissue and yellow orange fatty tissue attached to mesh. Digital Imager sections are submitted as C1. (OJ; 09/02/2017) CLINICAL HISTORY: Enterocutaneous fistula INITIAL CPT CODE(S): A; 17217 B; 11869 C; 94431 Professional services performed by [facility] at [address] , [place] [address] Technical services performed by [facility] at [address] [place] [address], [address], [place] [address]. [address] [address] SURGICAL PATH RPT PROCEDURE Name: RANJANA KOTHARI Room #: [facility]-P ADM IN M.R.#: [id number] Admission: 09/01/17 Date of : 49 Discharge: Report #: [id number] Path Case #: [id number] [facility] [address] [address] PHONE: [phone] DIRECTOR: Sage Champagne M.D. * * * END OF REPORT * * *
--- NOTE | ~2017-09-01 | O ---
[facility] [place] [address] OPERATIVE REPORT Name: RANJANA KOTHARI Room #: [facility]- ADM IN M.R.#: [id number] Admission: 09/01/17 Attend Phys: Rogelio Schwartz MD Discharge: Date of : 49 Report #: [id number] THIS REPORT FOR: //name// CC: FAM james Stevie Don Renan Salas DATE OF SERVICE: 09/01/2017 SURGEON: Renan Salas MD. GLAZING MACHINE OPERATOR: Emanuel Nunez DO. PREOPERATIVE DIAGNOSES: 1. Enterocutaneous fistula. 2. Diabetes mellitus. 3. Gastroesophageal reflux disease. 4. Hypertension. 5. Peripheral vascular disease. 6. Seizure disorder. 7. Schizophrenia. 8. Depression/anxiety. POSTOPERATIVE DIAGNOSES: 1. Enterocutaneous fistula. 2. Extensive intraabdominal adhesions. 3. Diabetes mellitus. 4. Gastroesophageal reflux disease. 5. Hypertension. 6. Peripheral vascular disease. 7. Seizure disorder. 8. Schizophrenia. 9. Depression/anxiety. PROCEDURES: 1. Exploratory laparotomy. 2. Extensive lysis of adhesions lasting 183 minutes. 3. Takedown of enterocutaneous fistula. 4. Segmental small bowel resections x 2. 5. Explantation of abdominal wall foreign body (mesh). 6. Bilateral component separation with bilateral transversus abdominis release. 7. Debridement of necrotic abdominal wall. 8. Repair of recurrent incarcerated incisional ventral hernia with Biomesh. 9. Abdominal wall reconstruction. 10. Adjacent tissue transfer (450 cm2). 11. Placement of Prevena topical wound VAC. 12. This is a modifier 22 operation based on the extensive length of time [facility] [address] [place] [address] OPERATIVE REPORT Name: RANJANA KOTHARI Room #: 247-P ADM IN M.R.#: [id number] Admission: 09/01/17 Attend Phys: Rogelio Schwartz MD Discharge: Date of : 49 Report #: [id number] necessary to take down the adhesions and degree of difficulty, making this an extremely long case at nearly 8 hours of operative time. ANESTHESIA: General endotracheal anesthesia. ESTIMATED BLOOD LOSS: 150 mL. SPECIMENS: Necrotic abdominal wall, explanted mesh, segment of proximal/mid ileum, segment of distal ileum. COMPLICATIONS: None appreciated. INDICATIONS FOR PROCEDURE: This is a 72-year-old female patient who has an enterocutaneous fistula. She was seen in the [facility] Emergency Room after having fallen at her halfway facility ([facility]). She complained of abdominal pain. CT revealed no acute abnormality within the abdomen or pelvis. The patient then developed an ileus and started draining liquid stool through an opening in her right abdomen through a paramedian incisional scar. The patient was studied with a fistulogram and CT showing this to be an enterocutaneous fistula. The patient has been placed on TPN and bowel rest and was transferred to a long-term acute care facility where she has remained on TPN. She does have a history of multiple medical issues and has undergone multiple abdominal operations in the past for incisional ventral hernias and bowel obstructions. She states that her most recent hernia operation took place in the . Her fall occurred several months ago, felt to be the inciting cause of her fistula. The patient presents now for takedown of her enterocutaneous fistula. OPERATIVE FINDINGS: The fistulous tract involved the proximal/mid ileum. Just distal to this, the previously placed Prolene mesh appeared to have fistulized with the bowel and was invaginated into the lumen of the bowel, causing a distal obstruction and this was the likely cause for her ongoing drainage due to both foreign body and obstruction. The patient had extensive intraabdominal adhesions from the bowel directly to the Prolene mesh as well as between loops of bowel. The small bowel was adherent within the pelvis. Adhesions from the transverse colon to the anterior abdominal wall and Prolene mesh were also present. Takedown of the adhesions lasted longer than 3 hours. The patient did have a proximal jejunal colonic diverticulum located along the antimesenteric border with no acute inflammatory changes present. This was not felt to be pathologic, and thus, was not resected. After explanting all involved Prolene mesh, a large defect was present. The Prolene appeared to have been sewn in to the Analy's fascia and most likely used as a bridge/interposition rather than as a buttress. In order to close the abdominal wall adequately and without tension, bilateral component separation with bilateral transversus abdominis release was necessary. After doing so, I was able to approximate the peritoneum in the midline. The development of [address] [address] OPERATIVE REPORT Name: RANJANA KOTHARI Room #: 247-P ADM IN M.R.#: [id number] Admission: 09/01/17 Attend Phys: Rogelio Schwartz MD Discharge: Date of : 47 Report #: [id number] subcutaneous flaps was also necessary in order to approximate the midline abdominal wall fascia. The area of closure within the retro-rectus pocket was 25 cm long x 20 cm wide. After closing the fascia, the remaining pocket was 30 cm long x 15 cm wide and required adjacent tissue transfer to advance and close the tissue in a complex fashion without any undue tension. At the conclusion of the operation, sponge, needle, and instrument counts were correct. No other significant pathology other than that noted above was seen. DESCRIPTION OF PROCEDURE IN DETAIL: After the risks, benefits, and expectations of the operation were discussed in detail with the patient, informed consent was obtained. The patient was identified in preoperative holding area. She was given IV antibiotics as documented in the chart in line with SCIP metrics. The patient was then taken to the operating room. She was placed in the supine position. SCDs were placed on the patient's bilateral lower extremities and pneumatic compression was initiated. The patient was then given IV sedation and she was intubated without incident. A time-out was performed to identify the correct patient and procedure. A central line was placed by anesthesia. The patient's abdomen was then prepped and draped in the standard sterile fashion. A time-out was performed to identify the correct patient and procedure. A sharp #10 blade scalpel was used to make a vertical incision through the right paramedian incisional scar around the fistula. Electrocautery was used to dissect through the underlying tissue to what appeared to be mesh. The mesh was opened to enter the underlying abdominal cavity. Dense adhesions were present. These were carefully dissected free from the mesh in order to open the mesh along the length of the incision. With appropriate traction, adhesiolysis of the extensive intraabdominal adhesions was undertaken with blunt dissection, sharp dissection and judicious use of electrocautery. The small bowel was tightly adherent to the overlying Prolene mesh. While attempting to dissect the bowel off the mesh, the bowel was entered and it was discovered that the mesh had eroded into the lumen of the bowel distal to the fistulous tract, forming a plug that occluded the lumen of the bowel. The mesh was excised in a piecemeal fashion. The openings of the bowel was whipstitched closed to control any leakage/drainage into the abdominal cavity. Further adhesiolysis was undertaken to free the entire small bowel from the ileocecal valve to the ligament of Treitz. The area of involvement of the enterocutaneous fistula was located in the proximal/mid ileum. This area would later be resected. An additional area in the distal ileum was also identified as being involved with the inflammatory process and fistula and this was to later be excised. Adhesiolysis continued until the entire small bowel was free except for these 2 areas. Segmental small bowel resection was then undertaken. The more proximal bowel was resected after windows were made in the mesentery both proximal and distal to the area of transection. Blue load FILIBERTO staplers were used to staple and [address] [address] OPERATIVE REPORT Name: RANJANA KOTHARI Room #: 247-P ADM IN M.R.#: [id number] Admission: 09/01/17 Attend Phys: Rogelio Schwartz MD Discharge: Date of : 47 Report #: [id number] divide the small bowel in this area. The Ethicon X1 EnSeal device was then used to divide the mesentery with good hemostasis. The excised segment of bowel was marked at the proximal suture line. Similarly, the more distal ileum was excised in a similar fashion. Windows were made in the mesentery proximal and distal to the area of transection. The bowel was transected with blue load FILIBERTO staplers. The mesentery was then divided with the X1 device. The second specimen was also marked at the proximal staple line with a suture. Both segments of bowel were removed to be sent for specimen. The [id number] functional end-to-end anastomoses were created next. The more proximal anastomosis was created first. The antimesenteric corners of the bowel were approximated with a 3-0 PDS suture. The antimesenteric corners of the staple line were then excised. Openings into the bowel were cannulated with each limb of the blue load FILIBERTO stapler. The stapler was then fired along the antimesenteric border. The stapler was removed and the common enterotomy was approximated with Allis clamps. The anastomosis was created with the 75 mm FILIBERTO stapler. A blue load 60 mm TX stapler was then used to staple off the common enterotomy. The tissue was then excised and the stapler was removed. A 3-0 PDS suture was placed at the crotch of the anastomosis to serve as an anti-tension suture. The mesenteric defect was then closed with a running 3-0 PDS suture. The staple line was imbricated with interrupted 3-0 PDS Lembert sutures. The anastomosis was palpably patent and without tension. The second anastomosis was created in a similar fashion. The antimesenteric corners were aligned with a 3-0 PDS suture. The antimesenteric corners of the staple line were excised and each limb of the 75 mm FILIBERTO blue load stapler was passed into each limb of the bowel. The stapler was then fired and removed. The common enterotomy was approximated and stapled off with the 60 mm TX stapler. The crotch of the staple line was reinforced with a 3-0 PDS suture, the mesenteric defect was closed with a running 3-0 PDS suture, and interrupted 3-0 PDS Lembert sutures were used to imbricate the staple line. This anastomosis was also palpable, patent and without tension. The abdominal cavity was then copiously irrigated with warm normal saline. The abdominal wall debridement and removal of foreign body was undertaken next. The mesh was grasped with Grey clamps and carefully dissected off of the abdominal wall with electrocautery. All mesh that was seen and palpable was removed. After doing so, a large defect remained. The incision was extended in a cephalad direction. The incision was then carried through the midline scar to excise the excess skin. The incision was also carried more widely around the area of the enterocutaneous fistula site. The skin was removed to be sent for specimen. The underlying tissue was also removed as it appeared to be necrotic and without blood supply. A large defect remained. Bilateral component separation was felt to be necessary. The abdominal wall fascia was dissected off of the overlying tissue on the left side as well as on the right side with electrocautery to free up an area of 7-8 cm wide. After doing so, Grey clamps were placed on the fascia to attempt to approximate the fascia and this was not felt to be possible due to the width of the defect. The left rectus sheath was [address] [address] OPERATIVE REPORT Name: RANJANA KOTHARI Room #: 247-P [facility] IN M.R.#: [id number] Admission: 09/01/17 Attend Phys: Rogelio Schwartz MD Discharge: Date of : 47 Report #: [id number] opened with electrocautery to expose the rectus abdominis muscle. Dissection was carried to the lateral rectus sheath border. The transversus abdominis muscle was then released with electrocautery in appropriate traction. This allowed for at least 4-5 cm of some loosening of the tissue to advance it closer to the midline. Similarly, on the right side, the right rectus sheath was opened at its medial aspect. The rectus muscle was then identified and swept anteriorly and laterally to identify the lateral rectus sheath border. The tissue was then scored with electrocautery to loosen the tissue at least 3 or 4 cm wide. After doing so, the posterior fascia was able to be approximated in the midline. The defects in the tissue were closed with transverse running 3-0 PDS sutures. The peritoneum/posterior rectus sheath fascia was closed with a running 0 PDS suture with care taken to ensure no incorporation of the underlying bowel. After closing this defect, the retro-rectus space was measured out at 25 cm long x 20 cm wide. Strattice Biomesh was then measured to fit the retro-rectus cavity and tailored on the backtable. The mesh was placed within the retro-rectus space. It was secured at the 12, 3, 6, and 9 o'clock positions to the underlying tissue with simple interrupted 0 PDS sutures. Interrupted 0 PDS sutures were then used to tack down the periphery of the mesh every 2-3 cm. There was good coverage of the retro-rectus space. I then attempted to approximate the anterior rectus sheath fascia in the midline. I was unable to do so without creating subcutaneous flaps. This was performed on each side with electrocautery to free up the tissue. A 19 Charan drain was then placed within the retro-rectus space and brought out through the inferior portion of the fascia, then through a stab wound in the right lower quadrant of the abdomen. A running looped #1 PDS suture was used to approximate the anterior rectus sheath fascia. The drain was then placed in the subcutaneous pocket and brought out through a stab wound in the left abdomen. Each drain was secured to the skin with a 2-0 nylon suture. The adjacent tissue transfer was undertaken next. The area that was advanced was 30 cm long x 15 cm wide. The subcutaneous tissue was approximated in the midline in layers with interrupted 2-0 Vicryl sutures to approximate the deeper subdermal tissue, then the more superficial tissue. The wound was then irrigated. Yuniel were used for skin closure. The skin was cleansed and dried. The Prevena topical wound VAC device was then applied to the skin incision. A Telfa bridge was necessary at the superior aspect of the wound to fully cover the wound. This was sealed with an OpSite. A good seal was present when the tubing was connected to the suction device. An abdominal binder was placed. The patient tolerated the procedure well. She had some difficulty with hypotension during the operation for which she was placed on pressors with good blood pressure support. She otherwise tolerated the procedure well. [facility] [address] [place] [address] OPERATIVE REPORT Name: RANJANA KOTHARI Room #: 247-P [facility] IN M.R.#: [id number] Admission: 09/01/17 Attend Phys: Rogelio Schwartz MD Discharge: Date of : 49 Report #: [id number] She was awakened, extubated, and taken to the recovery room in stable condition with no apparent intraoperative complications. <ELECTRONICALLY SIGNED> By: Renan Salas MD, FACS 09/03/17 1654 [id number] Renan Salas MD, FACS /nt
--- NOTE | ~2017-09-01 | EKG ---
[address] [address] ELECTROCARDIOGRAM REPORT Name: RANJANA KOTHARI Room #: 247-P ADM IN M.R.#: [id number] Admission: 09/01/17 Attend Phys: Rogelio Schwartz MD Discharge: Date of : 49 Report #: [id number] THIS REPORT FOR: //name// [facility] Test Date: 2017-09-04 Test Time: 07:28:44 Pat Name: RANJANA KOTAHRI Department: Room: [facility] Gender: F Child Care Specialist: RAMU : 1945 Requested By: Rogelio Schwartz Order Number: [id number] MD: Bennett Garcia Measurements Intervals [place] Rate: 134 P: 62 SC: 123 QRS: 45 QRSD: 54 T: 259 QT: 284 QTc: 424 Interpretive Statements Atrial fibrillation Low voltage Baseline wander in lead(s) V2 Compared to ECG 09/01/2017 15:19:35 Myocardial infarct finding now present Electronically Signed On 09-04-2017 8:42:39 APPLICATIONS SUPPORT LEAD by Bennett Garcia [email or web address] <ELECTRONICALLY SIGNED> By: Bennett Garcia MD 09/04/1742 7 7 Bennett Garcia MD /REVA
--- NOTE | ~2017-09-01 | HC ---
[facility] [place] [address] CONSULTATION Name: RANJANA KOTHARI Room #: [facility]-P ADM IN M.R.#: [id number] Admission: 09/01/17 Attend Phys: Rogelio Schwartz MD Discharge: Date of : 49 Report #: [id number] THIS REPORT FOR: //name// CC: Rogelio Schwartz [facility] unknown DATE OF SERVICE: 09/08/2017 ATTENDING PHYSICIAN: Renan Salas MD CONSULTATION REQUESTED BY: Dr. Benitez. REASON FOR CONSULTATION: MRSA screen positive. Antibiotic management. HISTORY OF PRESENT ILLNESS: The patient is a 72-year-old white woman, admitted with enterocutaneous fistula and ostomy. The patient underwent surgical intervention by Dr. Salas, consistent with exploratory laparotomy, lysis of adhesions, takedown of enterocutaneous fistula, segmental small bowel resection of a foreign body abdominal wall mesh; debridement of necrotic abdominal wall and repair of incarcerated incisional ventral hernia with biomesh and placement of PREVENA topical wound VAC. The patient remains in the intensive care unit. She is evaluated by Cardiology Services because of atrial tachycardia. Pulmonary Services, Dr. Benitez evaluated the patient as well because of dyspnea and increased oxygen requirements. The patient's antibiotics had been recently discontinued. She has been on metronidazole and ciprofloxacin. Currently, she appears to be on no antibiotics. The patient is in the ICU. I am assisted by the patient's nurse who reports the patient is a little better. The patient is unable to give me any information whatsoever. She appears extremely debilitated and consequently all information on this patient is gathered from the review of her records. DRUG ALLERGIES: SULFA, CHOLECALCIFEROL, PHYTONADIONE, MORPHINE, CEPHALEXIN, CLARITHROMYCIN, MEPERIDINE. MEDICATIONS: She is currently on treatment with Lasix 40 mg IV daily, amiodarone drip 300 mg daily, albuterol inhalation treatments, TPN bag of 2000 mL daily with regular insulin 45 units, metoprolol 5 mg IV every 6 hours if needed p.r.n., acetaminophen 650 q.i.d. p.r.n., albuterol inhalation treatments, albumin infusions, levothyroxine supplementation intravenously, insulin lispro per sliding scale, magnesium and potassium supplementation per protocols, Fluticasone nasal sprays, Enoxaparin 40 mg subQ daily, famotidine 20 mg b.i.d., fentanyl 25-50 mcg q.2 h p.r.n., levetiracetam 500 mg IV b.i.d., p.r.n. glucose, glucagon, p.r.n. ondansetron. She is off pressors currently. SOCIAL HISTORY: Unable to obtain. [address] [address] CONSULTATION Name: RANJANA KOTHARI Room #: 247-P ADM IN M.R.#: [id number] Admission: 09/01/17 Attend Phys: Rogelio Schwartz MD Discharge: Date of : 49 Report #: [id number] FAMILY HISTORY: Unable to obtain. REVIEW OF SYSTEMS: Unable to obtain. PHYSICAL EXAMINATION: GENERAL: Chronically ill-appearing edematous woman. VITAL SIGNS: Temperature 98.1, pulse 100, respirations 19, BP 80/55, 113/43. She is on amiodarone drip. Off pressors since 09/02. Height 5 feet 7 inches, weight 191 pounds. HEENT: Pupils are equal and reactive. Mouth unable to examine. She follows no commands. NECK: Supple, no thyromegaly. LUNGS: Decreased breath sounds. HEART: S1, S2. No gallop or murmur. ABDOMEN: Obese, distended with PREVENA on the abdominal wound and a couple of AVTAR drains, the left-sided AVTAR draining a cloudy-looking fluid. PELVIC AND RECTAL: Deferred. EXTREMITIES: No clubbing or cyanosis. NEUROLOGIC: Unable to evaluate. LABORATORY DATA: O2 saturations 95% on 3 liters oxygen nasal cannula. Sodium 145, potassium 3.7, BUN 28, creatinine 0.7. Calcium 7.8 mg/dL, possibly reflecting significant hypoalbuminemia and albumin is only 1.4 g/dL. NT-proBNP 2341. On 09/07, white blood cell count 12,900, hemoglobin 7 g/dL and platelets 225,000. The white blood cell count differential revealed 77% segmented neutrophils, 3% bands. Yesterday, the patient had 12% bands. The MRSA screen yesterday is positive. C. difficile toxin assay is pending. Procalcitonin was normal yesterday. Urinalysis revealed trace blood, otherwise negative. ABGs today revealed pH 7.36, pCO2 of 52, pO2 of 98, bicarbonate 29, lactate normal. This set of gases is on 3 liters oxygen nasal cannula. MICROBIOLOGY DATA: Blood culture x 1 obtained on 09/07, negative so far. Repeat blood culture today remains negative. RADIOLOGY EVALUATION: A chest x-ray revealed right arm PICC. Cardiomegaly. Atelectasis, lower lobes, slightly improved aeration. ASSESSMENT: 1. Positive MRSA screen. 2. Status post exploratory laparotomy, takedown of enterocutaneous fistula, segmental small bowel resections x 2 and repair of abdominal wall hernia with biomesh on 09/01/2017. 3. Supraventricular tachycardia. 4. Cardiomegaly. 5. Atelectasis. 6. Turbid abdominal fluid, entertain possibility of infection. [facility] [address] [place] [address] CONSULTATION Name: RANJANA KOTHARI Room #: 247-P ADM IN M.R.#: [id number] Admission: 09/01/17 Attend Phys: Rogelio Schwartz MD Discharge: Date of : 49 Report #: [id number] 7. Severe malnutrition. SUGGESTIONS: Recommend obtaining abdominal fluid culture from the left and right JPs. Empirical trial of Diflucan and meropenem. We will possibly not cover MRSA yet, but we will carefully continue to follow the patient along with you and make decision as to whether vancomycin or Zyvox may be indicated. Dr. Haroldo Benitez, thank you for requesting my suggestions in the care of your patient. <ELECTRONICALLY SIGNED> By: Ernst Garcia MD 09/09/17 0950 [id number] [id number] Ernst Garcia MD /nt
[~2017-09-01 05:21] MED LIST changes: +ABILIFY 2 MG2 M1 PO; +ASPERCREME1 EACH; +CELEXA20 MG PO; +DOXYCYCLINE 10100 MG PO; +ERGOCALCIF50000 UNIT PO; +HYDROCODONE-AP1 EAC6 PO; +INTRALIPID250 ML IVPB; +LEVOXYL75 MCG PO; +LIPITOR80 MG PO; +LOTRISONE CREAM15 GM; +NITROGLYCERIN0.4 MG SUBLING; +NOVOLOG FL100 UNIT/M; +TPN ELECTROLYTE20 ML IV; +TYLENOL325 MG PO
[2017-09-01 07:40] LABS: HEMATOCRIT 27.9 % (37.0-47.0); HEMOGLOBIN 9.1 gm/dL (12.0-15.0); MCH 29.6 pg (26.0-34.0); MCHC 32.8 g/dL (28.0-37.0); MCV 90.2 fL (80.0-100.0); RBC 3.09 mil/uL (4.20-5.00); RDW 15.2 % (10.5-14.5); WBC 13.3 thou/uL (4.0-11.0)
[2017-09-01 07:48] LABS: CALCIUM 9.3 mg/dL (8.5-10.1); CREATININE 0.8 mg/dL (0.6-1.0); POTASSIUM 4.1 mmol/L (3.5-5.1)
[2017-09-01 07:56] LABS: APTT 25.1 Seconds (24.5-32.8); INR 1.1; PROTIME 10.6 Seconds (9.3-11.4)
[2017-09-01 16:16] LABS: CREATININE 0.7 mg/dL (0.6-1.0); MAGNESIUM 1.2 mg/dL (1.8-2.4); POTASSIUM 4.4 mmol/L (3.5-5.1)
[2017-09-01 16:26] LABS: CALCIUM 7.3 mg/dL (8.5-10.1)
[2017-09-02] VITALS (49 sets, daily range): BP systolic 85–125; BP diastolic 45–68
[2017-09-02 05:46] LABS: RDW 15.6 % (10.5-14.5)
[2017-09-02 05:48] LABS: MCH 28.8 pg (26.0-34.0); MCHC 30.9 g/dL (28.0-37.0); MCV 93.3 fL (80.0-100.0); RBC 1.99 mil/uL (4.20-5.00); WBC 17.2 thou/uL (4.0-11.0)
[2017-09-02 05:55] LABS: ALBUMIN 2.5 g/dL (3.4-5.0); CALCIUM 7.3 mg/dL (8.5-10.1); CREATININE 0.9 mg/dL (0.6-1.0); MAGNESIUM 1.7 mg/dL (1.8-2.4); PHOSPHORUS 2.5 mg/dL (2.5-4.9); POTASSIUM 3.8 mmol/L (3.5-5.1); TOTAL BILIRUBIN 0.4 mg/dL (<0.1-1.0); TOTAL PROTEIN 5.1 g/dL (6.4-8.2)
[2017-09-02 05:56] LABS: MANUAL DIFF YES
[2017-09-02 05:58] LABS: HEMATOCRIT 18.6 % (37.0-47.0); HEMOGLOBIN 5.7 gm/dL (12.0-15.0)
[2017-09-02 05:59] LABS: PLATELET COUNT 204 thou/uL (150-400)
[2017-09-02 07:12] LABS: ABSOLUTE NEUTROPHILS 15.5 thou/uL (1.4-8.2); TOTAL CELL COUNT 100
[2017-09-02 07:13] LABS: ANISOCYTOSIS 1+; POLYCHROMASIA OCCASIONAL
[2017-09-02 07:15] LABS: OVALOCYTES 1+
[2017-09-02 12:51] LABS: HEMOGLOBIN 6.9 gm/dL (12.0-15.0)
[2017-09-02 12:53] LABS: HEMATOCRIT 21.7 % (37.0-47.0)
[2017-09-03] VITALS (39 sets, daily range): BP systolic 96–138; BP diastolic 49–106
[2017-09-03 04:43] LABS: HEMATOCRIT 27.3 % (37.0-47.0); HEMOGLOBIN 8.8 gm/dL (12.0-15.0); MCH 29.7 pg (26.0-34.0); MCHC 32.3 g/dL (28.0-37.0); MCV 92.1 fL (80.0-100.0); PLATELET COUNT 177 thou/uL (150-400); RBC 2.96 mil/uL (4.20-5.00); WBC 20.4 thou/uL (4.0-11.0)
[2017-09-03 04:44] LABS: MANUAL DIFF YES
[2017-09-03 04:54] LABS: CALCIUM 8.4 mg/dL (8.5-10.1); CREATININE 0.8 mg/dL (0.6-1.0); MAGNESIUM 2.7 mg/dL (1.8-2.4); PHOSPHORUS 2.1 mg/dL (2.5-4.9); POTASSIUM 3.8 mmol/L (3.5-5.1)
[2017-09-03 07:12] LABS: ABSOLUTE NEUTROPHILS 18.8 thou/uL (1.4-8.2); PLATELET ESTIMATE NORMAL; TOTAL CELL COUNT 100
[2017-09-03 07:13] LABS: ANISOCYTOSIS SLIGHT; BURR CELLS FEW; POIKILOCYTOSIS 1+
[2017-09-04] VITALS (148 sets, daily range): BP systolic 67–149; BP diastolic 34–136
[2017-09-04 05:55] LABS: HEMATOCRIT 25.6 % (37.0-47.0); HEMOGLOBIN 8.4 gm/dL (12.0-15.0); MANUAL DIFF YES; MCH 30.2 pg (26.0-34.0); MCHC 32.9 g/dL (28.0-37.0); PLATELET COUNT 147 thou/uL (150-400); RBC 2.79 mil/uL (4.20-5.00); RDW 15.9 % (10.5-14.5); WBC 16.6 thou/uL (4.0-11.0)
[2017-09-04 06:11] LABS: CALCIUM 8.4 mg/dL (8.5-10.1); CREATININE 0.7 mg/dL (0.6-1.0); MAGNESIUM 2.2 mg/dL (1.8-2.4); PHOSPHORUS 1.8 mg/dL (2.5-4.9); POTASSIUM 4.1 mmol/L (3.5-5.1)
[2017-09-04 06:56] LABS: ABSOLUTE NEUTROPHILS 15.3 thou/uL (1.4-8.2); ANISOCYTOSIS SLIGHT; ATYPICAL LYMPHS 1 %; HYPOCHROMASIA SLIGHT; TOTAL CELL COUNT 100
[2017-09-05] VITALS (32 sets, daily range): BP systolic 87–140; BP diastolic 45–95
[2017-09-05 04:40] LABS: HEMATOCRIT 24.7 % (37.0-47.0); MCH 29.8 pg (26.0-34.0); MCHC 32.3 g/dL (28.0-37.0); MCV 92.3 fL (80.0-100.0); PLATELET COUNT 166 thou/uL (150-400); RBC 2.67 mil/uL (4.20-5.00); RDW 15.7 % (10.5-14.5); WBC 17.1 thou/uL (4.0-11.0)
[2017-09-05 04:43] LABS: MANUAL DIFF YES
[2017-09-05 04:57] LABS: CALCIUM 8.3 mg/dL (8.5-10.1); CREATININE 0.8 mg/dL (0.6-1.0); MAGNESIUM 1.8 mg/dL (1.8-2.4); POTASSIUM 4.3 mmol/L (3.5-5.1)
[2017-09-05 05:51] LABS: ABSOLUTE NEUTROPHILS 16.4 thou/uL (1.4-8.2); TOTAL CELL COUNT 100
[2017-09-05 05:52] LABS: OVALOCYTES OCCASIONAL; POLYCHROMASIA OCCASIONAL
[2017-09-06] VITALS (26 sets, daily range): BP systolic 76–157; BP diastolic 39–132
[2017-09-06 04:49] LABS: HEMATOCRIT 24.9 % (37.0-47.0); HEMOGLOBIN 8.2 gm/dL (12.0-15.0); MCH 30.1 pg (26.0-34.0); MCHC 32.9 g/dL (28.0-37.0); MCV 91.4 fL (80.0-100.0); PLATELET COUNT 194 thou/uL (150-400); RBC 2.73 mil/uL (4.20-5.00); RDW 15.8 % (10.5-14.5); WBC 15.9 thou/uL (4.0-11.0)
[2017-09-06 04:50] LABS: MANUAL DIFF YES
[2017-09-06 04:57] LABS: CALCIUM 8.6 mg/dL (8.5-10.1); CREATININE 0.7 mg/dL (0.6-1.0); POTASSIUM 4.3 mmol/L (3.5-5.1)
[2017-09-06 05:26] LABS: ABSOLUTE NEUTROPHILS 13.2 thou/uL (1.4-8.2); METAMYELOCYTES 1 %; NUCLEATED RBCS 1 /100WBC; TOTAL CELL COUNT 100
[2017-09-06 07:53] LABS: MAGNESIUM 1.9 mg/dL (1.8-2.4); PHOSPHORUS 2.8 mg/dL (2.5-4.9)
[2017-09-07] VITALS (26 sets, daily range): BP systolic 70–135; BP diastolic 35–117
[2017-09-07 16:13] LABS: HEMATOCRIT 23.2 % (37.0-47.0); HEMOGLOBIN 7.6 gm/dL (12.0-15.0); MCH 30.4 pg (26.0-34.0); MCHC 32.7 g/dL (28.0-37.0); MCV 93.1 fL (80.0-100.0); PLATELET COUNT 216 thou/uL (150-400); RBC 2.49 mil/uL (4.20-5.00); RDW 15.6 % (10.5-14.5)
[2017-09-07 16:14] LABS: MANUAL DIFF YES
[2017-09-07 16:26] LABS: ABG COMMENT NO COMPLICATIONS.; ABG SAMPLE TYPE ARTERIAL; BE(vivo) 4.1 mmol/L (-2 to +3); HCO3 29.3 mmol/L (22.0-26.0); LACTATE 1.03 mmol/L (0.5-2.0); O2(CT) 11.2 mL/dL (15.0-23.0); PCO2 47.7 mmHg (35.0-45.0); PO2 82.3 mmHg (80.0-100.0); STICK SITE L.RADIAL; pH 7.406 (7.360-7.450); sO2 96.1 % (92.0-98.0); tCO2 30.8 mmol/L (24.0-30.0)
[2017-09-07 16:31] LABS: ALBUMIN 1.6 g/dL (3.4-5.0); CALCIUM 8.1 mg/dL (8.5-10.1); CREATININE 0.7 mg/dL (0.6-1.0); POTASSIUM 4.2 mmol/L (3.5-5.1); TOTAL BILIRUBIN 0.6 mg/dL (<0.1-1.0); TOTAL PROTEIN 5.3 g/dL (6.4-8.2)
[2017-09-07 16:41] LABS: ABSOLUTE NEUTROPHILS 11.8 thou/uL (1.4-8.2); METAMYELOCYTES 1 %; TOTAL CELL COUNT 100
[2017-09-07 16:42] LABS: ANISOCYTOSIS 2+; HYPOCHROMASIA SLIGHT; POLYCHROMASIA SLIGHT
[2017-09-07 16:43] LABS: POIKILOCYTOSIS 1+
[2017-09-07 16:43] LABS: INR 1.2; PROTIME 12.1 Seconds (9.3-11.4)
[2017-09-07 19:04] LABS: URINE BILIRUBIN NEGATIVE (Negative); URINE BLOOD TRACE (Negative); URINE GLUCOSE-RANDOM* NEGATIVE (Negative); URINE KETONES NEGATIVE (Negative); URINE LEUKOCYTES-REFLEX NEGATIVE (Negative); URINE PROTEIN (DIPSTICK) NEGATIVE (Negative); URINE SPECIFIC GRAVITY <= 1.005 (1.005-1.035); URINE UROBILINOGEN 0.2 E.U./dl (0.2-1.0)
[2017-09-07 19:05] LABS: URINE COLOR COLORLESS
[2017-09-08] VITALS (47 sets, daily range): BP systolic 69–120; BP diastolic 40–96
[2017-09-08 04:19] LABS: HEMATOCRIT 21.1 % (37.0-47.0); MCH 30.3 pg (26.0-34.0); MCHC 32.9 g/dL (28.0-37.0); MCV 92.2 fL (80.0-100.0); PLATELET COUNT 225 thou/uL (150-400); RBC 2.29 mil/uL (4.20-5.00); RDW 15.4 % (10.5-14.5); WBC 12.9 thou/uL (4.0-11.0)
[2017-09-08 04:26] LABS: MANUAL DIFF YES
[2017-09-08 04:33] LABS: ALBUMIN 1.4 g/dL (3.4-5.0); CALCIUM 7.8 mg/dL (8.5-10.1); CREATININE 0.7 mg/dL (0.6-1.0); MAGNESIUM 1.8 mg/dL (1.8-2.4); PHOSPHORUS 4.3 mg/dL (2.5-4.9); POTASSIUM 3.7 mmol/L (3.5-5.1); TOTAL BILIRUBIN 0.3 mg/dL (<0.1-1.0); TOTAL PROTEIN 5.1 g/dL (6.4-8.2)
[2017-09-08 05:54] LABS: ABG SAMPLE TYPE ARTERIAL; BE(vivo) 2.9 mmol/L (-2 to +3); LACTATE 0.92 mmol/L (0.5-2.0); O2Hb 96.4 % (92.0-98.0); PCO2 52.1 mmHg (35.0-45.0); PO2 98.5 mmHg (80.0-100.0); pH 7.364 (7.360-7.450); sO2 97.2 % (92.0-98.0); tCO2 30.6 mmol/L (24.0-30.0)
[2017-09-08 05:55] LABS: STICK SITE L.RADIAL
[2017-09-08 06:39] LABS: ABSOLUTE NEUTROPHILS 10.3 thou/uL (1.4-8.2); ANISOCYTOSIS SLIGHT; METAMYELOCYTES 1 %; MYELOCYTES 1 %; TOTAL CELL COUNT 100
[2017-09-09] VITALS (43 sets, daily range): BP systolic 66–142; BP diastolic 46–86
[2017-09-10] VITALS (30 sets, daily range): BP systolic 90–125; BP diastolic 47–87
[2017-09-10 06:18] LABS: MCH 30.7 pg (26.0-34.0); MCHC 33.2 g/dL (28.0-37.0); MCV 92.4 fL (80.0-100.0); PLATELET COUNT 273 thou/uL (150-400); RBC 2.11 mil/uL (4.20-5.00); RDW 15.1 % (10.5-14.5); WBC 13.4 thou/uL (4.0-11.0)
[2017-09-10 06:20] LABS: MANUAL DIFF YES
[2017-09-10 06:22] LABS: HEMATOCRIT 19.5 % (37.0-47.0)
[2017-09-10 06:23] LABS: HEMOGLOBIN 6.5 gm/dL (12.0-15.0)
[2017-09-10 06:32] LABS: ALBUMIN 1.5 g/dL (3.4-5.0); CALCIUM 8.1 mg/dL (8.5-10.1); CREATININE 0.7 mg/dL (0.6-1.0); PHOSPHORUS 3.8 mg/dL (2.5-4.9); POTASSIUM 4.3 mmol/L (3.5-5.1); TOTAL BILIRUBIN 0.3 mg/dL (<0.1-1.0); TOTAL PROTEIN 5.4 g/dL (6.4-8.2)
[2017-09-10 08:51] LABS: ABSOLUTE NEUTROPHILS 11.3 thou/uL (1.4-8.2); METAMYELOCYTES 2 %; TOTAL CELL COUNT 100
[2017-09-10 08:52] LABS: ANISOCYTOSIS 2+; MICROCYTES 2+; PLATELET ESTIMATE NORMAL
[2017-09-11] VITALS (54 sets, daily range): BP systolic 90–132; BP diastolic 54–103
[2017-09-11 05:35] LABS: ABG SAMPLE TYPE ARTERIAL; BE(vivo) 5.1 mmol/L (-2 to +3); HCO3 31.3 mmol/L (22.0-26.0); LACTATE 0.76 mmol/L (0.5-2.0); O2(CT) 12.2 mL/dL (15.0-23.0); O2Hb 93.7 % (92.0-98.0); PCO2 55.6 mmHg (35.0-45.0); PO2 77.9 mmHg (80.0-100.0); pH 7.368 (7.360-7.450); sO2 94.9 % (92.0-98.0)
[2017-09-11 05:36] LABS: STICK SITE L.RADIAL
[2017-09-11 05:58] LABS: HEMATOCRIT 25.4 % (37.0-47.0); MCH 30.5 pg (26.0-34.0); MCHC 33.3 g/dL (28.0-37.0); MCV 91.6 fL (80.0-100.0); PLATELET COUNT 325 thou/uL (150-400); RBC 2.78 mil/uL (4.20-5.00); RDW 15.6 % (10.5-14.5)
[2017-09-11 06:01] LABS: HEMOGLOBIN 8.5 gm/dL (12.0-15.0); MANUAL DIFF YES
[2017-09-11 08:22] LABS: ABSOLUTE NEUTROPHILS 11.8 thou/uL (1.4-8.2); POLYCHROMASIA SLIGHT; TOTAL CELL COUNT 100
[2017-09-11 08:23] LABS: ANISOCYTOSIS 1+; MACROCYTES 1+; MICROCYTES 1+
[2017-09-12] VITALS (17 sets, daily range): BP systolic 81–153; BP diastolic 29–128
[2017-09-12 05:10] LABS: HEMATOCRIT 22.5 % (37.0-47.0); HEMOGLOBIN 7.3 gm/dL (12.0-15.0); MCHC 32.7 g/dL (28.0-37.0); MCV 91.8 fL (80.0-100.0); RBC 2.45 mil/uL (4.20-5.00); RDW 15.1 % (10.5-14.5); WBC 12.5 thou/uL (4.0-11.0)
[2017-09-12 05:25] LABS: CALCIUM 8.1 mg/dL (8.5-10.1); CREATININE 0.7 mg/dL (0.6-1.0); PHOSPHORUS 4.4 mg/dL (2.5-4.9); POTASSIUM 4.2 mmol/L (3.5-5.1)
[2017-09-13 04:16] LABS: ABSOLUTE NEUTROPHILS 8.7 thou/uL (1.4-8.2); BASOPHILS 0.8 % (0.0-2.0); HEMATOCRIT 21.9 % (37.0-47.0); HEMOGLOBIN 7.8 gm/dL (12.0-15.0); LYMPHOCYTES 11.7 % (24.0-44.0); MCH 32.6 pg (26.0-34.0); MCHC 35.7 g/dL (28.0-37.0); MCV 91.2 fL (80.0-100.0); MONOCYTES 5.8 % (1.0-8.0); PLATELET COUNT 324 thou/uL (150-400); POLYS 80.7 % (36.0-66.0); RBC 2.41 mil/uL (4.20-5.00); RDW 15.2 % (10.5-14.5); WBC 10.8 thou/uL (4.0-11.0)
[2017-09-13 04:17] LABS: MANUAL DIFF NO
[2017-09-13 04:33] LABS: CALCIUM 8.1 mg/dL (8.5-10.1); CREATININE 0.8 mg/dL (0.6-1.0); MAGNESIUM 1.9 mg/dL (1.8-2.4); PHOSPHORUS 4.9 mg/dL (2.5-4.9); POTASSIUM 4.7 mmol/L (3.5-5.1)
[2017-09-13 19:00] VITALS: BP 108/64
[2017-09-14 04:57] LABS: ABSOLUTE NEUTROPHILS 7.4 thou/uL (1.4-8.2); EOSINOPHILS 1.3 % (0.0-3.0); HEMATOCRIT 22.3 % (37.0-47.0); HEMOGLOBIN 7.4 gm/dL (12.0-15.0); MANUAL DIFF NO; MCH 30.4 pg (26.0-34.0); MCHC 33.2 g/dL (28.0-37.0); MCV 91.6 fL (80.0-100.0); MONOCYTES 6.2 % (1.0-8.0); PLATELET COUNT 381 thou/uL (150-400); POLYS 80.5 % (36.0-66.0); RBC 2.44 mil/uL (4.20-5.00); RDW 15.2 % (10.5-14.5); WBC 9.2 thou/uL (4.0-11.0)
[2017-09-14 05:10] LABS: CALCIUM 8.4 mg/dL (8.5-10.1); CREATININE 0.7 mg/dL (0.6-1.0); PHOSPHORUS 4.6 mg/dL (2.5-4.9)
[2017-09-14 19:00] VITALS: BP 106/53
[2017-09-14 20:00] VITALS: BP 107/59
[2017-09-14 21:00] VITALS: BP 118/55
[2017-09-14 22:00] VITALS: BP 102/63
[2017-09-14 23:00] VITALS: BP 99/58
[2017-09-15] VITALS (7 sets, daily range): BP systolic 80–133; BP diastolic 49–73
[2017-09-15 04:50] LABS: HEMATOCRIT 22.5 % (37.0-47.0); HEMOGLOBIN 7.5 gm/dL (12.0-15.0); MCH 30.5 pg (26.0-34.0); MCHC 33.4 g/dL (28.0-37.0); MCV 91.4 fL (80.0-100.0); PLATELET COUNT 385 thou/uL (150-400); RBC 2.47 mil/uL (4.20-5.00); WBC 8.5 thou/uL (4.0-11.0)
[2017-09-15 04:52] LABS: MANUAL DIFF YES
[2017-09-15 04:57] LABS: CALCIUM 8.7 mg/dL (8.5-10.1); CREATININE 0.7 mg/dL (0.6-1.0); POTASSIUM 4.7 mmol/L (3.5-5.1)
[2017-09-15 06:01] LABS: ABSOLUTE NEUTROPHILS 7.6 thou/uL (1.4-8.2); TOTAL CELL COUNT 100
[2017-09-16 00:15] VITALS: BP 131/65
[2017-09-16 04:15] VITALS: BP 118/60
[2017-09-16 08:59] VITALS: BP 126/78
[2017-09-16 12:19] VITALS: BP 124/69
[2017-09-16 15:46] VITALS: BP 99/58
[2017-09-16 20:54] VITALS: BP 147/67
[2017-09-17 04:15] VITALS: BP 119/72
[2017-09-17 08:16] VITALS: BP 126/63
[2017-09-17 08:16] LABS: BASOPHILS 0.3 % (0.0-2.0); EOSINOPHILS 0.6 % (0.0-3.0); HEMATOCRIT 22.9 % (37.0-47.0); HEMOGLOBIN 7.7 gm/dL (12.0-15.0); LYMPHOCYTES 14.3 % (24.0-44.0); MCH 30.1 pg (26.0-34.0); MCHC 33.5 g/dL (28.0-37.0); MONOCYTES 5.1 % (1.0-8.0); PLATELET COUNT 401 thou/uL (150-400); POLYS 79.7 % (36.0-66.0); RBC 2.55 mil/uL (4.20-5.00); RDW 14.5 % (10.5-14.5); WBC 10.1 thou/uL (4.0-11.0)
[2017-09-17 08:17] LABS: MANUAL DIFF NO
[2017-09-17 08:23] LABS: CALCIUM 8.5 mg/dL (8.5-10.1); CREATININE 0.7 mg/dL (0.6-1.0); POTASSIUM 4.6 mmol/L (3.5-5.1)
[2017-09-17 11:46] VITALS: BP 101/53
[2017-09-17] MEDS ORDERED: LOPRESSOR25 PO (12:04)
[2017-09-17] MEDS ORDERED: OXYCODONE HCL10 MG PO (12:04)
[2017-09-17] MEDS ORDERED: ACCUNEB SO1.25 MG/1 INH (12:04)
[2017-09-17] MEDS ORDERED: LINEZOLID600 MG PO (12:04)
[2017-09-17] MEDS ORDERED: NYAMYC15 GM TOP (12:04)
[2017-09-17] MEDS ORDERED: PACERONE 200 M200 M1 PO (12:04)
[2017-09-17 15:28] VITALS: BP 106/56
[2017-09-17 19:45] VITALS: BP 97/52
[2017-09-18 04:05] VITALS: BP 114/61
[2017-09-18 07:46] VITALS: BP 116/60
[2017-09-18 12:17] VITALS: BP 116/60
== END 2017-09-18 13:28 | DRG 853 ==
LOC: TBA 05:21 → ICU 05:21 → PRE 12:09 → ICU 17:28 → 2N 09-15 15:13
PROVIDERS: Hospitalist; Internal Medicine Endocrinology, Diabetes & Metabolism; Internal Medicine Pulmonary Disease; Surgery
DX: A41.9 Sepsis, unspecified organism (principal); J96.01 Acute respiratory failure with hypoxia; E43 Unspecified severe protein-calorie malnutrition; K65.9 Peritonitis, unspecified; G93.40 Encephalopathy, unspecified; K63.2 Fistula of intestine; J98.11 Atelectasis; R18.8 Other ascites; I48.92 Unspecified atrial flutter; K56.7 Ileus, unspecified; I47.1 Supraventricular tachycardia; K43.0 Incisional hernia with obstruction, without gangrene; D62 Acute posthemorrhagic anemia; E11.52 Type 2 diabetes mellitus with diabetic peripheral angiopathy with gangrene; B95.1 Streptococcus, group B, as the cause of diseases classified elsewhere; B95.62 Methicillin resistant Staphylococcus aureus infection as the cause of diseases classified elsewhere; B95.61 Methicillin susceptible Staphylococcus aureus infection as the cause of diseases classified elsewhere; Z16.21 Resistance to vancomycin; E11.51 Type 2 diabetes mellitus with diabetic peripheral angiopathy without gangrene; F32.9 Major depressive disorder, single episode, unspecified; F41.9 Anxiety disorder, unspecified; F20.9 Schizophrenia, unspecified; G40.909 Epilepsy, unspecified, not intractable, without status epilepticus; J45.909 Unspecified asthma, uncomplicated; M19.90 Unspecified osteoarthritis, unspecified site; K21.9 Gastro-esophageal reflux disease without esophagitis; E78.5 Hyperlipidemia, unspecified; I95.9 Hypotension, unspecified; I48.91 Unspecified atrial fibrillation; I35.0 Nonrheumatic aortic (valve) stenosis; I50.9 Heart failure, unspecified; E83.42 Hypomagnesemia; I11.0 Hypertensive heart disease with heart failure; L30.4 Erythema intertrigo; K05.6 Periodontal disease, unspecified; Z79.4 Long term (current) use of insulin; Z68.32 Body mass index [BMI] 32.0-32.9, adult; Z88.8 Allergy status to other drugs, medicaments and biological substances; Z88.2 Allergy status to sulfonamides; Z88.6 Allergy status to analgesic agent; Z87.891 Personal history of nicotine dependence; Z90.49 Acquired absence of other specified parts of digestive tract; Z90.710 Acquired absence of both cervix and uterus; Z99.81 Dependence on supplemental oxygen; Z95.5 Presence of coronary angioplasty implant and graft; Z79.899 Other long term (current) drug therapy
CPT/HCPCS: 10078; 10081; 50010; 50093; 50101; 50331; 50386; 50455; 50953; 51412; 51420; 51435; 51708; 51712; 54124; 56525; 56526; 56527; 56530; 56639; 57092; 62110; 62900; 65002; 70005

== ENCOUNTER 2017-09-21 07:20 | Inpatient (IN) | payer OTHER ==
[~2017-09-21] VITALS: Ht 170.2 cm; Wt 105.7 kg
--- NOTE | ~2017-09-21 | HC ---
[facility] [place] [address] CONSULTATION Name: RANJANA KOTHARI [facility] ADM IN M.R.#: [id number] Admission: 09/21/17 Attend Phys: Lester Greer MD Discharge: Date of : 47 Report #: [id number] THIS REPORT FOR: //name// CC: Lester Briggs REASON FOR CONSULTATION: I was asked to evaluate concerning peritonitis and antibiotic treatment. HISTORY OF PRESENT ILLNESS: The patient is a 72-year-old recently discharged from [facility] on 09/18/2017, to long-term after she was diagnosed with enterocutaneous fistula and status post takedown with small-bowel resection on 09/01/2017, by Dr. Salas. She was found to have peritonitis with growth of MRSA, VRE, and group B strep along with diphtheroids. This was cultured from AVTAR fluid identified one week after her initial surgery. She was continued on Zyvox and meropenem. She also received a short course of micafungin for Dali dermatitis. She was on amiodarone and fluconazole was held. She also had congestive heart failure and was slow to wean from the ventilator. She did become strong enough to then become eligible for discharge to SNF unit. She was on Zyvox at the time of transfer. She returns now with chest pain. Her troponin and EKG were negative for ischemia. She was seen by cardiovascular medicine who planned a stress test. Her Zyvox has been held. No fever, chills or sweats. No nausea or vomiting. No diarrhea. She has indwelling Arnold catheter. REVIEW OF SYSTEMS: Otherwise, noncontributory. ALLERGIES: CALCIUM, KEFLEX, VITAMIN D, BIAXIN, DEMEROL, MORPHINE, VITAMIN K, and SULFA. MEDICATIONS: As noted on her NOV. PAST MEDICAL HISTORY: Diabetes, hypertension, hyperlipidemia, multiple abdominal surgeries, paroxysmal atrial tachycardia, previous alcohol abuse, seizure disorder, anxiety, schizophrenia, gastroesophageal reflux, asthma, DJD, appendectomy, cholecystectomy, hysterectomy, herniorrhaphy, cardiac stents and the above reported enterocutaneous fistula. FAMILY HISTORY: Noncontributory. SOCIAL HISTORY: Nonsmoker. No significant alcohol intake. PHYSICAL EXAMINATION: VITAL SIGNS: Afebrile and hemodynamically stable. GENERAL: Alert and cooperative. Her chest pain has resolved. She has indwelling Arnold catheter. Peripheral IV in place. Obese. 2+ anasarca. HEENT: Unremarkable. [facility] [address] [place] [address] CONSULTATION Name: RANJANA KOTHARI Room #: 246-P [facility] IN M.R.#: [id number] Admission: 09/21/17 Attend Phys: Lester Greer MD Discharge: Date of : 47 Report #: [id number] CHEST: Clear. HEART: Regular without murmur. ABDOMEN: Mild distention with midline abdominal incision, a small area of very superficial dehiscence in the mid portion. No purulent drainage. She had dermatitis both posteriorly to the pelvis and anterior lower abdomen, most consistent with eczema and yeast dermatitis. EXTREMITIES: Unremarkable. Indwelling Arnold catheter. LABORATORY STUDIES: Sodium 140, potassium 4.5, bicarbonate 28, creatinine 0.9, AST 48, bilirubin normal, tyree phos 124. Hemoglobin 7.4, white count 8.7, platelet count 403,000. Urinalysis unremarkable. Troponins negative. Lactate 1.4. Stable cardiomegaly without acute pulmonary infiltrate. CT scan of the abdomen and pelvis, postoperative changes from her ventral hernia repair, postoperative seroma, hematoma with no increase in size to suggest abscess. Small bilateral pleural effusions. IMPRESSION: A 72-year-old recently diagnosed with enterocutaneous fistula, now postoperative day 21. She has had prolonged course of antibiotic therapy. Her white count is normal. She still has some abdominal wall edema, but most of the erythema I think is more dermatitis from yeast. I would recommend holding her antibiotic therapy and treat topically for her yeast dermatitis. Cardiovascular medicine will continue workup for her chest pain. <ELECTRONICALLY SIGNED> By: Severo Musa MD 09/23/17 1120 1743 1928 Severo Musa MD /nt
--- NOTE | ~2017-09-21 | HC ---
[facility] [place] [address] CONSULTATION Name: RANJANA KOTHARI Room #: 203-P ADM IN M.R.#: [id number] Admission: 09/21/17 Attend Phys: Lester Greer MD Discharge: Date of : 47 Report #: [id number] THIS REPORT FOR: //name// CC: Lester Briggs DATE OF SERVICE: 09/23/2017 REASON FOR CONSULTATION: Acute renal failure, oliguric. HISTORY OF PRESENT ILLNESS: This 72-year-old patient initially presented to this hospital in October of this year with intra-abdominal complaint, status post multiple previous intra-abdominal surgeries. She eventually was found in March of this year to have an enterocutaneous fistula, which was treated conservatively and then the beginning of this month underwent a procedure of abdominal wall reconstruction enterocutaneous fistula takedown, a very extensive surgical procedure for which she was hospitalized until 09/18/2017, went to extended care facility and returned to this hospital with abdominal and chest pain, nausea and vomiting on . Over the last 48 hours, she has undergone profound deterioration with hypotension, leukocytosis, transaminitis and worsening mental confusion, transferred to ICU and currently receiving fluid resuscitation and antibiotics managed by ID. She has become oligoanuric. Creatinine has risen from a level of 0.9-1.6. Potassium is up to 5.8. The AST is 1406 up from 48. The ALT is 663 up from 53, bilirubin up to 1.1 and serum CO2 has fallen from 35 a week ago and now down at 26. There is also elevated lactic acid to 3.0. PAST MEDICAL HISTORY: There is an extensive past medical history, but the patient is a poor historian. I take most of this from old charts, which are not terribly complete, I believe, but as best as I can tell, she has had multiple intra-abdominal surgeries including abdominal repairs of hernias and mesh, multiple previous other surgeries including abdominal abscesses, hysterectomy, cholecystectomy, appendectomy, the previous enterocutaneous fistula as mentioned, history of cardiac arrhythmias, alcoholism, schizophrenia, hypothyroidism, smoking with COPD, chronic neck and back pain. REVIEW OF SYSTEMS: Really cannot be taken. The patient is not really very conversant at the current time. PHYSICAL EXAMINATION: GENERAL: This is an ill-appearing woman. She is awake, fairly stoic and not giving much in the way of answers. SKIN: Otherwise, unremarkable. SKELETAL: Shows a very well-developed, well-nourished patient who is obese. HEENT: Extraocular movements are full. No scleral icterus. Hearing and vision appear to be intact. Mucous membranes dry. Neck veins are flat. [address] [address] CONSULTATION Name: RANJANA KOTHARI Room #: 203-P ADM IN M.R.#: [id number] Admission: 09/21/17 Attend Phys: Lester Greer MD Discharge: Date of : 47 Report #: [id number] CHEST: Clear to auscultation without deep inspirations. HEART: Regular. ABDOMEN: Very distended. It is very firm and hard. There were no bowel sounds to be heard and is rather tender, particularly on the right side. EXTREMITIES: Showed 2+ generalized edema. NEUROLOGIC: Shows her to be moving all extremities. Awake and alert, but not really very talkative or communicative. LABORATORY DATA: White count is 16,500, differential is pending. Hemoglobin is 7.6, platelets are 380. Sodium is 138, potassium 5.8, chloride 103, bicarbonate 26, BUN 13, creatinine 1.6, calcium 7.6, phosphorus 5.3, albumin 1.7. ASSESSMENT AND PLAN: 1. Acute kidney injury. She appears to be in septic shock with hypoperfusion of her kidneys and acute kidney injury. IV fluids are being given copiously. She will be supported with pressors as well as needed IV fluids. Her potassium is up, but she is not terribly acidotic. She does have somewhat of a chronic respiratory acidosis and that is nothing new. She may well need renal replacement therapy. I will certainly talk to the family about how aggressive we want to proceed with this patient. 2. Septic shock. She has septic shock. Certainly, an intra-abdominal source. We are doing a CT abdomen and pelvis to further investigate. I have discussed the case with Dr. Salas who does not feel that reoperation is feasible given her overall condition and recent findings, etc. 3. Status post enterocutaneous fistula takedown with abdominal wall reconstruction. This was done about 4 weeks ago. 4. History of chronic obstructive pulmonary disease. 5. Schizophrenia. <ELECTRONICALLY SIGNED> By: Luis Fernando Kay MD 09/30/17 1212 1714 0016 Luis Fernando Kay MD /nt
--- NOTE | ~2017-09-21 | EKG ---
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
--- NOTE | ~2017-09-21 | HC ---
[facility] [place] [address] CONSULTATION Name: RANJANA KOTHARI Room #: 216-[facility] IN M.R.#: [id number] Admission: 09/21/17 Attend Phys: Lester Greer MD Discharge: Date of : 47 Report #: [id number] THIS REPORT FOR: //name// CC: Lester Briggs DATE OF SERVICE: 09/21/2017 TYPE OF REPORT: Cardiology consultation. INDICATION: Chest pains. HISTORY OF PRESENT ILLNESS: This is a 72-year-old female who was recently hospitalized for ventral hernia repair, presenting with abdominal pain and chest pain. She has had multiple abdominal surgeries and has chronic abdominal discomfort. She also reports having chest pains, sometimes relieved with belching. She denies any shortness of breath, dizziness, nausea or diarrhea. She has remote history of CAD, the details are not available. She had an echo in February of 2017 revealing normal LV systolic function and [id number] aortic stenosis. PAST MEDICAL HISTORY: Diabetes mellitus, hypertension, hypercholesterolemia, multiple abdominal procedures, history of paroxysmal atrial tachycardia, hypertension and hypercholesterolemia. MEDICATIONS: Include CALCIUM, KEFLEX, DEMEROL, BIAXIN, MORPHINE and SULFA. MEDICATIONS: Please see the MAR for full details. SOCIAL HISTORY: Negative for tobacco use. FAMILY HISTORY: Negative for premature CAD. REVIEW OF SYSTEMS: A full 10-point review of systems performed. Only the pertinent positives and negatives are described in the HPI. PHYSICAL EXAMINATION: VITAL SIGNS: Blood pressure is 140/70 and heart rate is 72 beats per minute. GENERAL APPEARANCE: An overweight female, in no acute respiratory distress. HEAD AND EYES: Normocephalic. Sclerae are anicteric. ENT: Oral mucosa moist. NECK: Supple. LUNGS: Clear to auscultation. CARDIAC: Regular rate and rhythm. S1 and S2 positive. ABDOMEN: Protuberant. Bowel sounds positive. EXTREMITIES: No cyanosis, 1+ bilateral lower extremity edema. [facility] [address] [place] [address] CONSULTATION Name: RANJANA KOTHARI Room #: [address] [place] [address] IN .R.#: [id number] Admission: 09/21/17 Attend Phys: Lester Greer MD Discharge: Date of : 47 Report #: [id number] RADIOLOGICAL DATA: ECG reveals sinus rhythm and nonspecific T-wave abnormality. LABORATORY VALUES: White count is 8.0 and hemoglobin is 8.1. Sodium is 148 and creatinine 0.7. Troponin is negative x 2. ASSESSMENT AND PLAN: 1. Chest pain, atypical symptoms. However, given her risk factors and apparent prior history of coronary artery disease, we will need to rule out ischemia. We will proceed with noninvasive stress testing. 2. Diabetes mellitus, continue with medications. Follow fingersticks. 3. Hypertension. Continue with blood pressure medications. 4. Hypercholesterolemia, continue statin. 5. Ventral hernia repair, as per General Surgery. <ELECTRONICALLY SIGNED> By: Anjum Gutierres MD 09/22/17 0836 1847 2032 Anjum Gutierres MD /taylor
[~2017-09-21 07:20] MED LIST changes: +ACCUNEB SO1.25 MG/1 INH; +LINEZOLID600 MG PO; +LOPRESSOR25 PO; +NYAMYC15 GM TOP; +OXYCODONE HCL10 MG PO; +PACERONE 200 M200 M1 PO
[2017-09-21 07:27] VITALS: BP 142/67
[2017-09-21 07:54] LABS: HEMATOCRIT 24.5 % (37.0-47.0); HEMOGLOBIN 8.1 gm/dL (12.0-15.0); MCH 29.6 pg (26.0-34.0); MCHC 32.9 g/dL (28.0-37.0); MCV 89.9 fL (80.0-100.0); RBC 2.72 mil/uL (4.20-5.00); RDW 14.7 % (10.5-14.5)
[2017-09-21 07:57] LABS: ANION GAP 6 mmol/L (7-16); BUN 13 mg/dL (7-18); CALCIUM 8.1 mg/dL (8.5-10.1); CHLORIDE 103 mmol/L (98-107); CO2 31 mmol/L (21-32); CREATININE 0.7 mg/dL (0.6-1.0); GLUCOSE 129 mg/dL (74-106); POTASSIUM 4.8 mmol/L (3.5-5.1); SODIUM 140 mmol/L (136-145)
[2017-09-21 08:06] LABS: ALBUMIN 1.8 g/dL (3.4-5.0); LIPASE 34 U/L (73-393); SGOT 48 U/L (15-37); SGPT 53 U/L (30-65); TOTAL BILIRUBIN 0.5 mg/dL (<0.1-1.0); TOTAL PROTEIN 6.3 g/dL (6.4-8.2); TROPONIN-I < 0.04 ng/mL (<0.06)
[2017-09-21] MEDS ORDERED: KEPPRA 500 MG500 M1 (08:17)
[2017-09-21 09:28] LABS: URINE BILIRUBIN NEGATIVE (Negative); URINE BLOOD NEGATIVE (Negative); URINE CLARITY CLEAR; URINE COLOR YELLOW; URINE GLUCOSE-RANDOM* NEGATIVE (Negative); URINE KETONES NEGATIVE (Negative); URINE LEUKOCYTES-REFLEX NEGATIVE (Negative); URINE NITRITE-REFLEX NEGATIVE (Negative); URINE PROTEIN (DIPSTICK) 1+ (Negative); URINE SPECIFIC GRAVITY <= 1.005 (1.005-1.035)
[2017-09-21 09:36] LABS: CASTS None Seen /LPF (None Seen); CRYSTALS None Seen /LPF (None Seen); SQUAMOUS 0-3 Few /LPF (0-3)
[2017-09-21 09:37] LABS: BACTERIA-REFLEX 1-9 Few /HPF (None Seen); URINE RBC None Seen /HPF (0-2); URINE WBC-REFLEX 0-5 Rare /HPF (0-5)
[2017-09-21 10:01] VITALS: BP 118/52
[2017-09-21 10:11] VITALS: BP 118/52
[2017-09-21 10:50] VITALS: BP 150/82
[2017-09-21 15:50] VITALS: BP 142/70
[2017-09-21 22:17] VITALS: BP 122/65
[2017-09-22 03:26] VITALS: BP 119/62
[2017-09-22 03:35] LABS: CALCIUM 7.5 mg/dL (8.5-10.1); CREATININE 0.9 mg/dL (0.6-1.0); POTASSIUM 4.5 mmol/L (3.5-5.1)
[2017-09-22 03:39] LABS: HEMATOCRIT 22.4 % (37.0-47.0); HEMOGLOBIN 7.4 gm/dL (12.0-15.0); MCH 29.9 pg (26.0-34.0); MCHC 33.1 g/dL (28.0-37.0); MCV 90.5 fL (80.0-100.0); RBC 2.48 mil/uL (4.20-5.00); RDW 15.3 % (10.5-14.5); WBC 8.7 thou/uL (4.0-11.0)
[2017-09-22 08:00] VITALS: BP 109/62
[2017-09-22 12:24] LABS: % SATURATION 44 % (20-39); IRON 63 ug/dL (50-170); TIBC 144 ug/dL (250-450)
[2017-09-22 13:48] LABS: FOLIC ACID 30.4 ng/mL (8.6-58.9)
[2017-09-22 15:50] VITALS: BP 95/47
[2017-09-22 19:58] VITALS: BP 122/61
[2017-09-22 23:55] VITALS: BP 95/46
[2017-09-23] VITALS (58 sets, daily range): BP systolic 74–119; BP diastolic 35–81
[2017-09-23 09:06] LABS: BE(vivo) -0.4 mmol/L (-2 to +3); HCO3 26.2 mmol/L (22.0-26.0); PCO2 53.4 mmHg (35.0-45.0); PO2 96.4 mmHg (80.0-100.0); pH 7.309 (7.360-7.450); sO2 96.6 % (92.0-98.0)
[2017-09-23 09:19] LABS: HEMOGLOBIN 8.3 gm/dL (12.0-15.0); MCH 29.9 pg (26.0-34.0); MCHC 31.9 g/dL (28.0-37.0); MCV 93.9 fL (80.0-100.0); RBC 2.77 mil/uL (4.20-5.00); RDW 15.2 % (10.5-14.5); WBC 13.9 thou/uL (4.0-11.0)
[2017-09-23 09:25] LABS: CALCIUM 7.7 mg/dL (8.5-10.1); CREATININE 1.5 mg/dL (0.6-1.0)
[2017-09-23 09:30] LABS: POTASSIUM 6.4 mmol/L (3.5-5.1)
[2017-09-23 09:32] LABS: APTT 31.5 Seconds (24.5-32.8); FIBRINOGEN 399.4 mg/dL (210-360); INR 1.6; PROTIME 16.1 Seconds (9.3-11.4)
[2017-09-23 09:36] LABS: ALBUMIN 1.8 g/dL (3.4-5.0); TOTAL BILIRUBIN 1.1 mg/dL (<0.1-1.0); TOTAL PROTEIN 6.2 g/dL (6.4-8.2)
[2017-09-23 11:47] LABS: URINE BILIRUBIN NEGATIVE (Negative); URINE BLOOD TRACE (Negative); URINE CLARITY CLEAR; URINE COLOR YELLOW; URINE GLUCOSE-RANDOM* NEGATIVE (Negative); URINE KETONES NEGATIVE (Negative); URINE LEUKOCYTES-REFLEX NEGATIVE (Negative); URINE NITRITE-REFLEX NEGATIVE (Negative); URINE PROTEIN (DIPSTICK) 2+ (Negative); URINE SPECIFIC GRAVITY 1.025 (1.005-1.035); URINE UROBILINOGEN 0.2 E.U./dl (0.2-1.0)
[2017-09-23 12:01] LABS: BACTERIA-REFLEX 1-9 Few /HPF (None Seen); CASTS None Seen /LPF (None Seen); CRYSTALS None Seen /LPF (None Seen); SQUAMOUS 0-3 Few /LPF (0-3); URINE RBC 3-10 Few /HPF (0-2); URINE WBC-REFLEX 6-15 Few /HPF (0-5)
[2017-09-23 13:18] LABS: CALCIUM 7.7 mg/dL (8.5-10.1); CREATININE 1.6 mg/dL (0.6-1.0); POTASSIUM 5.8 mmol/L (3.5-5.1)
[2017-09-23 17:06] LABS: ALBUMIN 1.7 g/dL (3.4-5.0); CALCIUM 7.6 mg/dL (8.5-10.1); CREATININE 1.6 mg/dL (0.6-1.0); PHOSPHORUS 5.3 mg/dL (2.5-4.9); POTASSIUM 5.8 mmol/L (3.5-5.1)
[2017-09-23 18:06] LABS: HEMATOCRIT 24.1 % (37.0-47.0); HEMOGLOBIN 7.7 gm/dL (12.0-15.0); MCH 30.1 pg (26.0-34.0); MCHC 32.1 g/dL (28.0-37.0); MCV 93.9 fL (80.0-100.0); PLATELET COUNT 396 thou/uL (150-400); RBC 2.56 mil/uL (4.20-5.00); WBC 15.6 thou/uL (4.0-11.0)
[2017-09-23 18:17] LABS: CALCIUM 7.3 mg/dL (8.5-10.1); CREATININE 1.7 mg/dL (0.6-1.0)
[2017-09-23 18:18] LABS: POTASSIUM 4.6 mmol/L (3.5-5.1)
[2017-09-23 18:22] LABS: ALBUMIN 1.6 g/dL (3.4-5.0); CALCIUM 7.4 mg/dL (8.5-10.1); CREATININE 1.7 mg/dL (0.6-1.0); PHOSPHORUS 5.1 mg/dL (2.5-4.9); POTASSIUM 4.7 mmol/L (3.5-5.1)
[2017-09-23 18:55] LABS: ABSOLUTE NEUTROPHILS 13.6 thou/uL (1.4-8.2); ANISOCYTOSIS 1+; NUCLEATED RBCS 2 /100WBC
[2017-09-23 18:56] LABS: POLYCHROMASIA OCCASIONAL
[2017-09-24] VITALS (91 sets, daily range): BP systolic 84–123; BP diastolic 35–87
[2017-09-24 05:40] LABS: HEMATOCRIT 24.5 % (37.0-47.0); HEMOGLOBIN 7.9 gm/dL (12.0-15.0); MCHC 32.1 g/dL (28.0-37.0); MCV 93.5 fL (80.0-100.0); RBC 2.62 mil/uL (4.20-5.00); RDW 15.9 % (10.5-14.5); WBC 13.9 thou/uL (4.0-11.0)
[2017-09-24 05:48] LABS: PCO2 53.5 mmHg (35.0-45.0); PO2 100.6 mmHg (80.0-100.0); sO2 96.7 % (92.0-98.0)
[2017-09-24 06:05] LABS: ALBUMIN 1.7 g/dL (3.4-5.0); CALCIUM 7.4 mg/dL (8.5-10.1); CREATININE 1.6 mg/dL (0.6-1.0); PHOSPHORUS 4.7 mg/dL (2.5-4.9); POTASSIUM 5.1 mmol/L (3.5-5.1); TOTAL BILIRUBIN 0.5 mg/dL (<0.1-1.0); TOTAL PROTEIN 6.3 g/dL (6.4-8.2)
[2017-09-24 06:28] LABS: ABSOLUTE NEUTROPHILS 11.5 thou/uL (1.4-8.2)
[2017-09-24 06:29] LABS: LARGE PLATELETS SEVERAL; PLATELET COUNT 397 thou/uL (150-400); PLATELET ESTIMATE NORMAL; POLYCHROMASIA OCCASIONAL
[2017-09-24 11:00] LABS: URINE CREATININE-RANDOM* 136.9 mg/dL
[2017-09-25] VITALS (26 sets, daily range): BP systolic 85–109; BP diastolic 46–64
[2017-09-25 05:26] LABS: HEMATOCRIT 22.9 % (37.0-47.0); HEMOGLOBIN 7.3 gm/dL (12.0-15.0); MCH 30.3 pg (26.0-34.0); MCHC 32.1 g/dL (28.0-37.0); MCV 94.4 fL (80.0-100.0); PLATELET COUNT 358 thou/uL (150-400); RBC 2.42 mil/uL (4.20-5.00); RDW 15.7 % (10.5-14.5); WBC 8.2 thou/uL (4.0-11.0)
[2017-09-25 05:55] LABS: ALBUMIN 1.4 g/dL (3.4-5.0); CALCIUM 7.5 mg/dL (8.5-10.1); CREATININE 1.1 mg/dL (0.6-1.0); PHOSPHORUS 2.8 mg/dL (2.5-4.9); POTASSIUM 4.3 mmol/L (3.5-5.1); TOTAL BILIRUBIN 0.3 mg/dL (<0.1-1.0); TOTAL PROTEIN 5.7 g/dL (6.4-8.2)
[2017-09-25 06:24] LABS: ABSOLUTE NEUTROPHILS 6.8 thou/uL (1.4-8.2)
[2017-09-25 06:28] LABS: HYPOCHROMASIA 1+; POLYCHROMASIA OCCASIONAL
[2017-09-25 06:29] LABS: LARGE PLATELETS FEW
[2017-09-26] VITALS (15 sets, daily range): BP systolic 100–131; BP diastolic 49–73
[2017-09-26 04:54] LABS: HCO3 24.6 mmol/L (22.0-26.0); PCO2 50.7 mmHg (35.0-45.0); PO2 122.1 mmHg (80.0-100.0)
[2017-09-26 04:55] LABS: pH 7.303 (7.360-7.450)
[2017-09-26 05:29] LABS: ALBUMIN 1.4 g/dL (3.4-5.0); CALCIUM 7.5 mg/dL (8.5-10.1); CREATININE 0.9 mg/dL (0.6-1.0); PHOSPHORUS 2.3 mg/dL (2.5-4.9); POTASSIUM 4.3 mmol/L (3.5-5.1); TOTAL BILIRUBIN 0.3 mg/dL (<0.1-1.0); TOTAL PROTEIN 5.8 g/dL (6.4-8.2)
[2017-09-27 02:40] LABS: ALBUMIN 1.4 g/dL (3.4-5.0); CALCIUM 7.7 mg/dL (8.5-10.1); CREATININE 0.8 mg/dL (0.6-1.0); PHOSPHORUS 2.3 mg/dL (2.5-4.9); POTASSIUM 4.1 mmol/L (3.5-5.1)
[2017-09-27 04:05] VITALS: BP 109/55
[2017-09-27 11:45] VITALS: BP 133/78
[2017-09-27 15:25] VITALS: BP 158/85
[2017-09-27 19:22] VITALS: BP 117/64
[2017-09-28 03:42] VITALS: BP 135/75
[2017-09-28 06:02] LABS: HCO3 28.7 mmol/L (22.0-26.0); PCO2 49.9 mmHg (35.0-45.0); PO2 79.7 mmHg (80.0-100.0); pH 7.378 (7.360-7.450); sO2 95.4 % (92.0-98.0)
[2017-09-28 06:15] LABS: ALBUMIN 1.6 g/dL (3.4-5.0); CALCIUM 8.1 mg/dL (8.5-10.1); CREATININE 0.8 mg/dL (0.6-1.0); PHOSPHORUS 2.6 mg/dL (2.5-4.9); POTASSIUM 4.1 mmol/L (3.5-5.1)
[2017-09-28 07:30] VITALS: BP 138/63
[2017-09-28 11:10] VITALS: BP 108/49
[2017-09-28 15:25] VITALS: BP 137/63
[2017-09-28 19:12] VITALS: BP 136/67
[2017-09-29 03:52] VITALS: BP 123/68
[2017-09-29 07:07] LABS: CREATININE 1.1 mg/dL (0.6-1.0); POTASSIUM 4.2 mmol/L (3.5-5.1)
[2017-09-29 07:12] VITALS: BP 123/63
[2017-09-29 11:17] VITALS: BP 130/77
[2017-09-29 15:53] VITALS: BP 142/72
[2017-09-29 19:09] VITALS: BP 123/63
[2017-09-30 03:36] VITALS: BP 114/66
[2017-09-30 06:24] LABS: BE(vivo) 4.7 mmol/L (-2 to +3); HCO3 30.5 mmol/L (22.0-26.0); PCO2 52.9 mmHg (35.0-45.0); PO2 96.1 mmHg (80.0-100.0); pH 7.379 (7.360-7.450); sO2 97.1 % (92.0-98.0)
[2017-09-30 07:48] VITALS: BP 109/60
[2017-09-30] MEDS ORDERED: OXYCODONE HCL10 MG PO (08:59)
[2017-09-30] MEDS ORDERED: LASIX 40 MG TAB40 M2 PO (09:03)
[2017-09-30] MEDS ORDERED: DOXYCYCLINE 10100 MG PO (10:46)
[2017-09-30 11:34] VITALS: BP 131/69
[2017-10-19] MEDS ORDERED: POTASSIUM20 PO (16:01)
[2017-10-19] MEDS ORDERED: ASPIR 8181 MG PO (16:02)
[2017-10-19] MEDS ORDERED: VITAMINC500 PO (16:07)
== END 2017-09-30 13:40 | DRG 871 ==
LOC: ER 07:20 → EROBS 09:35 → 2N 09:35 → ICU 09-23 09:57 → 2N 09-26 13:36
PROVIDERS: Emergency Medicine; Hospitalist; Internal Medicine; Internal Medicine Geriatric Medicine; Internal Medicine Nephrology; Internal Medicine Pulmonary Disease
DX: A41.9 Sepsis, unspecified organism (principal); G93.40 Encephalopathy, unspecified; R65.21 Severe sepsis with septic shock; N17.0 Acute kidney failure with tubular necrosis; J69.0 Pneumonitis due to inhalation of food and vomit; K72.00 Acute and subacute hepatic failure without coma; J96.02 Acute respiratory failure with hypercapnia; E43 Unspecified severe protein-calorie malnutrition; I48.92 Unspecified atrial flutter; J98.11 Atelectasis; F41.9 Anxiety disorder, unspecified; K21.9 Gastro-esophageal reflux disease without esophagitis; E03.9 Hypothyroidism, unspecified; I10 Essential (primary) hypertension; G89.29 Other chronic pain; M54.9 Dorsalgia, unspecified; M19.90 Unspecified osteoarthritis, unspecified site; E11.51 Type 2 diabetes mellitus with diabetic peripheral angiopathy without gangrene; E78.00 Pure hypercholesterolemia, unspecified; G40.909 Epilepsy, unspecified, not intractable, without status epilepticus; F20.9 Schizophrenia, unspecified; I25.10 Atherosclerotic heart disease of native coronary artery without angina pectoris; F32.9 Major depressive disorder, single episode, unspecified; D50.9 Iron deficiency anemia, unspecified; E87.5 Hyperkalemia; J44.9 Chronic obstructive pulmonary disease, unspecified; E87.70 Fluid overload, unspecified; Z90.710 Acquired absence of both cervix and uterus; Z95.5 Presence of coronary angioplasty implant and graft; Z79.899 Other long term (current) drug therapy; Z68.36 Body mass index [BMI] 36.0-36.9, adult; Z90.49 Acquired absence of other specified parts of digestive tract; Z87.891 Personal history of nicotine dependence; Z88.1 Allergy status to other antibiotic agents; Z88.8 Allergy status to other drugs, medicaments and biological substances; Z88.5 Allergy status to narcotic agent; Z88.2 Allergy status to sulfonamides
CPT/HCPCS: 10078; 10797; 27000

== ENCOUNTER 2020-06-08 02:14 | Inpatient (IN) | payer OTHER ==
[~2020-06-08] VITALS: Ht 152.4 cm; Wt 81.1 kg
--- NOTE | ~2020-06-08 | HC ---
[facility] [place] [address] CONSULTATION Name: RNAJANA KOTHARI Room #: 447-P ADM IN M.R.#: [id number] Admission: 06/08/20 Attend Phys: Daniel Reyes MD Discharge: Date of : 49 Report #: [id number] THIS REPORT FOR: cc: Sharri Briggs MD,Florence Wilkinson,Roberto Corral MD ~ CC: Sharri Lee DATE OF SERVICE: 06/11/2020 HISTORY OF PRESENT ILLNESS: The patient is a 74-year-old white female with history of schizophrenia, diabetes mellitus, and prior history of heavy ETOH usage. Noted to be wheelchair bound premorbidly in a nursing facility. She apparently fell in the bathroom, sustained a right femoral intertrochanteric fracture as well as a left intertrochanteric fracture. She underwent intramedullary nailing of the left intertrochanteric fracture along with examination under anesthesia with closure of the right distal femur fracture on 06/09/2020. She has been placed in a right lower extremity immobilizer. She is allowed weightbearing as tolerated for transfers on left lower extremity, but is nonweightbearing on right lower extremity for 6 weeks. She will need daily right lower extremity splint monitoring. We are seeing her in rehabilitation medicine consultation. PAST MEDICAL HISTORY: Includes seizure disorder, insulin-dependent diabetes mellitus, schizophrenia, GERD, asthma. There is an apparent history of some dementia. HABITS: Past history of tobacco abuse. MEDICATIONS: Please see the full medication listing. ALLERGIES: MULTIPLE NOTED. SOCIAL HISTORY: As noted above. Apparently, he has been living in a nursing facility, a long-term care resident, needed assist for transfers prior and did not propel herself with her wheelchair prior to admission per the physical therapy note. REVIEW OF SYSTEMS: No current complaints of chest pain, shortness of breath or abdominal discomfort. She has complaints regarding bilateral hip discomfort as expected. PHYSICAL EXAMINATION: GENERAL: A 74-year-old white female in no obvious distress. The patient is [address] [place] [address] CONSULTATION Name: RANJANA KOTHARI Room #: 447-P ADM IN M.R.#: [id number] Admission: 06/08/20 Attend Phys: Daniel Reyes MD Discharge: Date of : 47 Report #: [id number] alert. VITAL SIGNS: Last recorded temperature 37.4, pulse 109, respirations 20, blood pressure 124/47. HEENT: Appeared to be benign. NEUROMUSCULOSKELETAL: Cranial nerves grossly intact. She has some decreased range of motion of both shoulders. Upper extremity tone appeared to be intact. Lower extremities, she has a right lower extremity knee immobilizer in place. She can wiggle her toes and the ankle of the right lower extremity, some with dorsiflexion, but again it was difficult as she has some discomfort with any attempted movement. Left lower extremity, she was able to dorsiflex the left ankle. ASSESSMENT: A 74-year-old white female with the following problem list: 1. Left hip intertrochanteric fracture, status post intramedullary nailing on 06/09/2020. 2. Right intertrochanteric distal femur fracture, status post examination under anesthesia with closure of right distal femur fracture on 06/09/2020. Weightbearing as tolerated for transfers of left lower extremity only with nonweightbearing right lower extremity for 6 weeks with use of splint. 3. History of schizophrenia. 4. Apparent history of dementia. 5. Seizure disorder. 6. Diabetes mellitus type 2. 7. Past history of ETOH abuse. 8. Prior heavy tobacco abuse history. PLAN: The patient does not meet criteria for an acute 5-North inpatient rehabilitation stay. We would recommend fpc facility stay as further medically stabilizes. She is at a low functional level and is a premorbid long-term care resident per my review. Thank you for asking us to assist in this patient's care. By: 1020 [id number] Roberto Wilkinson MD /nt
[~2020-06-08 02:14] MED LIST changes: +ASPIR 8181 MG PO; +KEPPRA 500 MG500 M1; +LASIX 40 MG TAB40 M2 PO; +POTASSIUM20 PO; +VITAMINC500 PO
[2020-06-08 02:15] VITALS: BP 122/51
[2020-06-08 03:22] LABS: BASOPHILS 1.2 % (0.0-2.0); EOSINOPHILS 1.7 % (0.0-3.0); HEMATOCRIT 29.6 % (37.0-47.0); HEMOGLOBIN 9.3 gm/dL (12.0-15.0); LYMPHOCYTES 15.4 % (24.0-44.0); MCH 28.2 pg (26.0-34.0); MCHC 31.5 g/dL (28.0-37.0); MCV 89.5 fL (80.0-100.0); MONOCYTES 7.8 % (1.0-8.0); PLATELET COUNT 356 thou/uL (150-400); POLYS 73.9 % (36.0-66.0); WBC 12.2 thou/uL (4.0-11.0)
[2020-06-08 03:26] LABS: CALCIUM 8.3 mg/dL (8.5-10.1); POTASSIUM 3.9 mmol/L (3.5-5.1)
[2020-06-08 03:32] LABS: ALBUMIN 2.5 g/dL (3.4-5.0); TOTAL BILIRUBIN 0.2 mg/dL (0.2-1.0); TOTAL PROTEIN 6.4 g/dL (6.4-8.2)
[2020-06-08] MEDS ORDERED: SENNA PLUS TAB1 EACH PO (04:23)
[2020-06-08] MEDS ORDERED: AMIODARONE HCL400 MG PO (04:24)
[2020-06-08] MEDS ORDERED: ZYRTEC10 M4 PO (04:24)
[2020-06-08] MEDS ORDERED: LANTUS SUBQ (04:25)
[2020-06-08] MEDS ORDERED: GABAPENTIN100 MG PO (04:26)
[2020-06-08] MEDS ORDERED: VISTARIL 25 MG25 M1 PO (04:26)
[2020-06-08] MEDS ORDERED: NYSTATIN-TRIAMC15 G1 TOP (04:28)
[2020-06-08] MEDS ORDERED: WELLBUTRIN XL300 MG PO (04:28)
[2020-06-08] MEDS ORDERED: MELATONIN5 M4 PO (04:29)
[2020-06-08] MEDS ORDERED: SSD CREAM 1% 5050 GM TOP (04:31)
[2020-06-08] MEDS ORDERED: PREDNISONE 5 MG5 M1 PO (04:32)
--- NOTE | 2020-06-08 07:26 | EKG ---
[facility] [place] [address] ELECTROCARDIOGRAM REPORT Name: RANJANA KOTHARI Room #: 170-1 ADM IN M.R.#: [id number] Admission: 06/08/20 Attend Phys: Daniel Reyes MD Discharge: Date of : 47 Report #: [id number] THIS REPORT FOR: cc: Sharri Briggs MD,Florence Taylor,Lee [facility] ~ THIS REPORT FOR: //name// [facility] ED Test Date: 2020-06-08 Test Time: 02:43:49 Pat Name: RANJANA KOTHARI Department: Room: [facility] Gender: F Shop Helper: [facility] : 1945 Requested By: Edgar Carrasco Order Number: [id number] : Lee Taylor Measurements Intervals Romayor Rate: 82 P: 26 HI: 53 QRS: 42 QRSD: 72 T: 44 QT: 505 QTc: 590 Interpretive Statements Sinus rhythm Low voltage, extremity leads RSR' in V1 or V2, probably normal variant Borderline ST depression, anterolateral leads Artifact in lead(s) I,III,aVR,aVL,aVF,V1,V2 Compared to ECG 09/21/2017 07:53:15 RSR' in V1 or V2 now present ST (T wave) deviation now present Electronically Signed On 06-08-2020 7:26:19 CDT by Lee Taylor [email or web address] <ELECTRONICALLY SIGNED> By: Lee Taylor MD, [facility] 06/08/20 0726 2 2 Lee Taylor MD, [facility] /EPI
[2020-06-08 09:28] LABS: URINE BILIRUBIN NEGATIVE (Negative); URINE BLOOD NEGATIVE (Negative); URINE CLARITY CLEAR; URINE COLOR YELLOW; URINE GLUCOSE-RANDOM* 1+ (Negative); URINE KETONES NEGATIVE (Negative); URINE PROTEIN (DIPSTICK) NEGATIVE (Negative); URINE SPECIFIC GRAVITY 1.015 (1.005-1.035); URINE UROBILINOGEN 0.2 E.U./dl (0.2-1.0)
[2020-06-08 09:30] LABS: URINE LEUKOCYTES-REFLEX 2+ (Negative); URINE NITRITE-REFLEX POSITIVE (Negative)
[2020-06-08 09:52] LABS: CASTS None Seen /LPF (None Seen); MUCUS 0-3 Light strn/LPF (None Seen); SQUAMOUS 0-3 Few /LPF (0-3); URINE WBC-REFLEX >25 Many /HPF (0-5)
[2020-06-08 09:53] LABS: BACTERIA-REFLEX >30 Many /HPF (None Seen); CRYSTALS None Seen /LPF (None Seen); URINE RBC None Seen /HPF (0-2); WBC CLUMPS Moderate (None Seen)
[2020-06-08 10:07] LABS: APTT 24.6 Seconds (24.5-32.8); PROTIME 10.1 Seconds (9.3-11.4)
--- NOTE | 2020-06-08 12:23 | HC ---
[facility] [place] [address] CONSULTATION Name: RANJANA KOTHARI Room #: 170-1 ADM IN M.R.#: [id number] Admission: 06/08/20 Attend Phys: Daniel Reyes MD Discharge: Date of : 47 Report #: [id number] THIS REPORT FOR: cc: Sharri Briggs MD,Liz Young MD, MD ~ CC: Sharri Lee DATE OF SERVICE: 06/08/2020 ORTHOPEDIC CONSULT NOTE REASON FOR CONSULTATION: Left hip and right distal femur fracture. HISTORY OF PRESENT ILLNESS: The patient is a 74-year-old female who is a poor historian, has significant dementia. Ambulatory status is unknown and probable minimal who reports trying to get out of her bed last night and fell. Majority of her history was obtained from the medical record. She presented to the Emergency Department. She reports pain in her right knee and left hip, but again this is a difficult history to obtain. I left a message for the patient's son and that number is [phone], Toby Clemente. She was diagnosed with a left hip IT fracture and a right distal femur fracture. REVIEW OF SYSTEMS: INTEGUMENTARY: Reports rash, but is unable to tell me how long it has been present. MUSCULOSKELETAL: Denies other injury. PAST MEDICAL HISTORY: Obtained from the chart and includes seizures, insulin-dependent diabetes, anxiety, schizophrenia, history of heavy alcohol use, dementia, frequent falls, gastroesophageal reflux disease, hypothyroidism. PAST SURGICAL HISTORY: Numerous abdominal surgeries, cardiac stent x 2. HOME MEDICATIONS: Include albuterol, amiodarone, metoprolol, nystatin, oxycodone, furosemide, levetiracetam, polyethylene glycol, acetaminophen, levothyroxine, nitroglycerin, potassium chloride, aspirin, ascorbic acid, aripiprazole, sennoside, cetirizine, insulin, hydroxyzine, gabapentin, melatonin. ALLERGIES: INCLUDE CALCIUM CARBONATE, CEPHALEXIN, CHOLECALCIFEROL, CLARITHROMYCIN, MEPERIDINE, PHYTONADIONE, SULFA. SOCIAL HISTORY: Unable to be determined by the patient. Her ambulatory status [address] [address] CONSULTATION Name: RANJANA KOTHARI Room #: 170-1 ADM IN ..#: [id number] Admission: 06/08/20 Attend Phys: Daniel Reyes MD Discharge: Date of : 47 Report #: [id number] is most likely minimal to none. Alcohol and smoking is unknown, currently. LABORATORY DATA: Done on the day of admission show white blood cell count 12.2, hemoglobin 9.3, hematocrit 29.6, platelet count 356. Chemistry: Sodium is elevated at 146. Albumin is low at 2.5. COVID test is pending. PHYSICAL EXAMINATION: GENERAL: The patient is awake and alert. She is in moderate distress. Reports pain. She is not oriented to person, place or time. VITAL SIGNS: Most recent vital signs show a heart rate of 89, respiratory rate 14, blood pressure 93/48, pulse oximetry is 100% on 2 liters nasal cannula. SKIN: Examination of her skin, grossly, she has diffuse erythematous rash over her entire body. Does have some plaques over the extensor surface of her digits. EXTREMITIES: Her upper extremities are grossly neurovascularly intact with brisk capillary refill. Sensation is grossly intact. Again, the exam is limited. She moves her shoulders, wrists, elbows and hands without significant evidence of pain. Right lower extremity: The knee is diffusely edematous. Again, noted the rash over her entire body. Skin is otherwise clean and dry. She has brisk capillary refill. She wiggles her toes. There is tenderness to palpation throughout the entire right knee. Left lower extremity: There is again the noted rash. The skin is otherwise clean, dry and intact. She wiggles her toes. Grossly normal strength and stability. Sensation is intact. Brisk capillary refill. No tenderness to the knee, leg, ankle or foot. Significant pain with attempted range of motion of left hip. RADIOGRAPHS: 1. Suboptimal radiographs were obtained, AP view of the pelvis and multiple different AP views of the left hip show basicervical/IT femoral neck fracture. 2. AP, lateral of the bilateral knees were reviewed and again these were suboptimal, on the left knee, shows no evidence of fracture. On the right, there is a supracondylar femur fracture in slight flexion. IMPRESSION AND PLAN: 1. Left IT/basicervical femoral neck fracture in a patient with questionable ambulatory status. I am waiting on her son to return my call. The patient most likely would benefit from surgical stabilization; however, she needs to be cleared by the medical team. The rash is somewhat concerning as well. 2. Right distal femur fracture. I will obtain better lateral views of the knee and hips. I will place the patient in a knee immobilizer. At this point, this may be better treated nonoperatively if the patient's ambulatory status is minimal, but we will speak with one of my [facility] partners. <ELECTRONICALLY SIGNED> By: Liz Louise MD 06/08/20 1223 0744 0930 Liz Louise MD /taylor
--- NOTE | 2020-06-08 14:55 | 2DMMODE ---
[address] [address] 2 D/M-MODE ECHOCARDIOGRAM Name: RANJANA KOTHARI Room #: 170-1 ADM IN M.R.#: [id number] Admission: 06/08/20 Attend Phys: Daniel Reyes MD Discharge: Date of : 47 Report #: [id number] THIS REPORT FOR: cc: Sharri Briggs MD, Ramilo MD Park,Anjum Hassan MD ~ APPROVED REPORT Study performed: 06/08/2020 13:53:14 EXAM: Comprehensive 2D, Doppler, and color-flow Echocardiogram Patient Location: ER Room #: 1 Status: stat BSA: 1.80 HR: 91 bpm BP: 114/48 mmHg Other Information Study Quality: Good Indications Aortic Valve Disease Arrhythmia COPD Diabetes CAD Hypertension/HDD 2D Dimensions RVDd: 27.18 mm LVOT Diam: 17.74 (18-24mm) IVC: 13.00 mm Volumes Left Atrial Volume (Systole) Single Plane 4CH: 68.71 mL Single Plane 2CH: 63.46 mL LA ESV Index: 40.00 mL/m2 Aortic Valve AoV Peak Harsha.: 2.98 m/s AO Peak Gr.: 35.42 mmHg LVOT Max P.52 mmHg AO Mean Gr.: 20.14 mmHg LVOT Mean P.07 mmHg [facility] [address] [facility] [place] [address] 2 D/M-MODE ECHOCARDIOGRAM Name: RANJANA KOTHARI Room #: 170-1 ADM IN M.R.#: [id number] Admission: 06/08/20 Attend Phys: Daniel Reyes MD Discharge: Date of : 47 Report #: [id number] AO V2 Mean: 2.12 m/s LVOT Max V: 1.17 m/s AO V2 VTI: 62.47 cm LVOT Mean V: 0.81 m/s BROOK (VTI): 1.08 cm2 LVOT V1 VTI: 27.43 cm BROOK Vmax: 0.98 cm2 SV (LVOT): 67.76 mL Mitral Valve E/A Ratio: 2.1 MV Decel. Time: 156.36 ms MV E Max Harsha.: 1.35 m/s MV A Harsha.: 0.63 m/s MV PHT: 45.34 ms Pulmonary Valve PV Peak Harsha.: 1.07 m/s PV Peak Gr.: 4.57 mmHg Tricuspid Valve TR Peak Harsha.: 4.12 m/s TR Peak Gr.: 67.87 mmHg PA Pressure: 78.00 mmHg Left Ventricle The left ventricle is normal size. There is normal LV segmental wall motion. There is normal left ventricular wall thickness. Left ventricular systolic function is hyperdynamic. LVEF is 70%. This study is not technically sufficient to allow evaluation of the LV diastolic function. Right Ventricle The right ventricle is normal size. The right ventricular systolic function is normal. Atria Left atrium is dilated. Right atrium is at the upper limits of normal. Aortic Valve The aortic valve is normal in structure. Aortic valve is calcified. Trace to mild aortic regurgitation. Moderate aortic stenosis. Mitral Valve The mitral valve is normal in structure. There is mitral annular calcification. Mild mitral regurgitation. No evidence of mitral valve stenosis. Tricuspid Valve [facility] [address] [place] [address] 2 D/M-MODE ECHOCARDIOGRAM Name: RANJANA KOTHARI Room #: 170-1 ADM IN .R.#: [id number] Admission: 06/08/20 Attend Phys: Daniel Reyes MD Discharge: Date of : 47 Report #: [id number] The tricuspid valve is normal in structure. There is mild to moderate tricuspid regurgitation. Estimated PAP 72 mmHg. There is severe pulmonary hypertension. Pulmonic Valve The pulmonary valve is normal in structure. Trace to mild pulmonic regurgitation. Great Vessels The aortic root is normal in size. IVC is normal in size and collapses <50% with inspiration. Pericardium There is no pericardial effusion. <Conclusion> The left ventricle is normal size. There is normal left ventricular wall thickness. Left ventricular systolic function is hyperdynamic. The right ventricle is normal size. Left atrium is dilated. Moderate aortic stenosis. Mild mitral regurgitation. There is mild to moderate tricuspid regurgitation. Estimated PAP 72 mmHg. <ELECTRONICALLY SIGNED> By: Anjum Gutierres MD 06/08/201454 54 54 Anjum Gutierres MD /INF
[2020-06-08 15:03] VITALS: BP 143/63
[2020-06-08 15:17] LABS: % SATURATION 17 % (20-39); IRON 38 ug/dL (50-170); TIBC 219 ug/dL (250-450)
[2020-06-08 15:50] VITALS: BP 115/54
[2020-06-08 16:28] VITALS: BP 115/54
--- NOTE | 2020-06-08 19:19 | NUR ---
Pt came to unit from ED. Pt confused. Rt knee immobilizer in place. Skin rash noticed. Family member is in [place] if no cell phone coverage. Arnold catheter in place. Fall precautions in place. Report given to andrea VINSON.
[2020-06-08 20:46] VITALS: BP 118/56
--- NOTE | 2020-06-08 23:44 | NUR ---
PT IS REALLY CONFUSED AND RESTLESS. SHE HAS BEEN YELLING THROUGHOUT THE SHIFT. PT REQUIRES CONSTANT REASSURANCE .PT C/O PAIN TO R LEG.ALTERNATING BTW IV AND ORAL PAIN MEDS. ROSALES IN PLACE, PT DRINKING FLUIDS OKAY-SHE LIKES HER WATER. BLISTERS AND RASH ALL OVER BODY, TAC CRM AND NYSTATIN CRM APPLIED.PT HAS NO SWALLOW TROUBLE. NPO AFTER MIDNOC FOR SURGERY IN THE AM. WILL CONTINUE WITH POC TILL EOS.
[2020-06-09] VITALS (8 sets, daily range): BP systolic 108–146; BP diastolic 48–77
[2020-06-09 00:06] LABS: GLYCOHEMOGLOBIN (HGB A1C) 6.7 % (4.8-5.6)
[2020-06-09 05:43] LABS: ABSOLUTE NEUTROPHILS 13.9 thou/uL (1.4-8.2); BASOPHILS 0.9 % (0.0-2.0); EOSINOPHILS 0.6 % (0.0-3.0); HEMATOCRIT 25.6 % (37.0-47.0); HEMOGLOBIN 7.9 gm/dL (12.0-15.0); LYMPHOCYTES 11.2 % (24.0-44.0); MCH 27.9 pg (26.0-34.0); MONOCYTES 8.2 % (1.0-8.0); PLATELET COUNT 311 thou/uL (150-400); POLYS 79.1 % (36.0-66.0); RBC 2.84 mil/uL (4.20-5.00); RDW 16.1 % (10.5-14.5); WBC 17.6 thou/uL (4.0-11.0)
[2020-06-09 05:46] LABS: CALCIUM 8.3 mg/dL (8.5-10.1); CREATININE 1.1 mg/dL (0.6-1.0); MAGNESIUM 1.9 mg/dL (1.8-2.4); POTASSIUM 4.2 mmol/L (3.5-5.1)
--- NOTE | 2020-06-09 07:07 | NUR ---
PATIENT WITH L HIP FX, NPO FOR SURGERY. WILL NEED NEW ORDERS TO INITIATE OT EVAL POST OP.
--- NOTE | 2020-06-09 12:08 | O ---
[address] [address] OPERATIVE REPORT Name: RANJANA OCASIO Room #: 447-P ADM IN M.R.#: [id number] Admission: 06/08/20 Attend Phys: Daniel Reyes MD Discharge: Date of : 47 Report #: [id number] THIS REPORT FOR: cc: Sharri Briggs MD,Florence Stephens,oHsea Cardona MD ~ CC: Sharri Lee DATE OF SERVICE: 06/09/2020 SERVICE: Orthopedics. FACILITY: [facility]. SURGEON: Hosea Stephens MD [facility] MANAGER: Norah Ocasio. PREOPERATIVE DIAGNOSES: 1. Displaced left intertrochanteric hip fracture. 2. Displaced right intraarticular distal femur fracture. POSTOPERATIVE DIAGNOSES: 1. Displaced left intertrochanteric hip fracture. 2. Displaced right intraarticular distal femur fracture. PROCEDURES: 1. Intramedullary nail fixation of left intertrochanteric hip fracture. 2. Examination under anesthesia with closed treatment of right distal femur fracture. COMPLICATIONS: None. DRAINS: None. SPECIMENS: None. ANESTHESIA: General. FINDINGS: 1. Olivier and Nephew 13 mm x 125 degree InterTan IM nail with 95 and 90 mm compression screws and 30 mm distal locking screw. 2. Right distal femur, stable on examination, treated with a splint application with a bulky Pride dressing. [address] [address] OPERATIVE REPORT Name: RANJANA OCASIO Room #: 447-P [facility] [place]#: [id number] Admission: 06/08/20 Attend Phys: Daniel Reyes MD Discharge: Date of : 47 Report #: [id number] HISTORY AND INDICATIONS: The patient is a 74-year-old female with multiple medical issues who was brought in to [facility] after a fall and she was diagnosed with a right distal femur fracture as well as a left intertrochanteric hip fracture. She was indicated for surgical treatment. Risks, benefits, alternatives, and indication of surgery discussed over the phone with her son on the day of admission by my partner and she was able to obtain verbal consent. There was an issue with the family member being away at a distant location with poor cell phone service. Plans were made to proceed with surgery when she was medically optimized. PROCEDURE IN DETAIL: After left lower extremity and right lower extremity were correctly identified as the injured extremities, the patient was taken to the operating room where general anesthesia was induced without complication. She was transferred to the fracture table. Prophylactic antibiotics were being administered as she has a urinary tract infection and is already being treated and was on time with her meropenem dose. She was padded appropriately. Time-out procedure was performed and then examination under anesthesia performed, the right knee was stable to varus and valgus stress, flexion and extension. There is soft tissue swelling and there was no instability or crepitus and with her bedridden status, it was felt that a nonsurgical treatment is most appropriate for, we applied a well-padded bulky Pride splint with a knee immobilizer and a thick cotton padding to the right leg. The C-arm was then brought in to assess the left hip fracture, which was displaced intertrochanteric hip fracture that was acting in the basicervical type fracture pattern. Reduction maneuver was performed under fluoroscopy with abduction, traction, adduction and then internal rotation and then the fracture was well reduced at this point. One inch incision was made proximal to the greater trochanter. After the left hip was prepped and draped in standard sterile fashion and a guide pin was placed, confirming its position on the AP and the lateral view. After this was completed, we used the entry reamer to obtain access to the proximal femoral canal and then placed the 13 mm nail. Using the outrigger device, the proximal interlocking screw eyes were placed. We measured to a 102 and then selected a 95 mm screw and then the two screw, Olivier and Nephew InterTan interlocking system was placed into the proximal femur in the typical fashion and compression was achieved with the second screw. AP and lateral views were taken to confirm hardware positioning. The outrigger was then used to place a distal interlocking screw and a 30 mm screw was selected and good purchase was obtained. Final photographs were taken and the instruments were removed and the wounds were irrigated. Deep layers closed, the skin was closed with #2-0 Vicryl followed by skin andre. Sterile [address] [address] OPERATIVE REPORT Name: RANJANA OCASIO Room #: 447-P [facility] [place]#: [id number] Admission: 06/08/20 Attend Phys: Daniel Reyes MD Discharge: Date of : 47 Report #: [id number] dressing was applied and the patient was taken to the recovery room in stable condition. No complications. All counts were correct. <ELECTRONICALLY SIGNED> By: Hosea Stephens MD 06/09/20 1208 1021 1041 Hosea Stephens MD /nt
--- NOTE | 2020-06-09 15:49 | NUR ---
PT CARE ASSUMED AT 0700. A&Ox2 PERSON AND PLACE. PT LEFT FOR SURGERY AND RETURNED AT 1115 WITH BLOOD TRANSFUSION GOING THAT WAS STARTED IN POST OP. PT IN A LOT OF PAIN 07/07. TREATED AND PT NOW PEACEFULLY RESTING. PT ON HIP PRECAUTIONS. HIP NAILING DONE ON R. HIP. JACLYN DRESSING IN PLACE. IMMOBILIZER TO L. KNEE. HOME O2 IN PLACE. WILL RECHECK CBC AND BMP AFTER TRANSFUSION COMPLEET. WILL FOLLOW UP. HONEY THICK FLUIDS. SPOKE WITH FAMILY AND POST OP UPDATE GIVEN. FALL PROTOCOL IN PLACE. IV PATENT WITH NO REDNESS OR EDEMA, POST OP FLUIDS INFUSING THEN SALINE LOCK. WILL CONTINUE TO MONITOR.
[2020-06-09 15:53] LABS: HEMATOCRIT 30.8 % (37.0-47.0); HEMOGLOBIN 9.6 gm/dL (12.0-15.0); MCH 28.4 pg (26.0-34.0); MCHC 31.4 g/dL (28.0-37.0); MCV 90.6 fL (80.0-100.0); RBC 3.39 mil/uL (4.20-5.00); RDW 16.4 % (10.5-14.5); WBC 18.7 thou/uL (4.0-11.0)
[2020-06-09 16:06] LABS: CALCIUM 8.3 mg/dL (8.5-10.1); CREATININE 1.1 mg/dL (0.6-1.0); POTASSIUM 4.7 mmol/L (3.5-5.1)
--- NOTE | 2020-06-10 05:14 | NUR ---
PT IS ALERT TO SELF. MOSTLY CONFUSED. REPOSITIONING PROVIDED WELL PAIN MEDS. IMMOBILIZER TO RLE . BULK DRSG TO LEFT HIP. SCD PLACED TO LLE.TAC CRM APPLIED TO SEVERAL PARTS OF BODY WITH RASH.NYSTATIN APPLIED TO INNER THIGHS/GROIN AREA.PT HAS 02/2L/NC IN PLACE. PT DRINKING WHEN OFFERED, SHE WILL ASK FOR A DRINK AT TIMES. ROSALES TO D/D WITH DARK YELLOW U/O.AFEBRILE.WILL CONTINUE WITH POC TILL EOS.
[2020-06-10 05:52] LABS: HEMATOCRIT 24.8 % (37.0-47.0); HEMOGLOBIN 8.1 gm/dL (12.0-15.0); MCHC 32.5 g/dL (28.0-37.0); MCV 89.1 fL (80.0-100.0); RBC 2.79 mil/uL (4.20-5.00); RDW 15.7 % (10.5-14.5); WBC 16.3 thou/uL (4.0-11.0)
[2020-06-10 07:45] VITALS: BP 140/70
--- NOTE | 2020-06-10 14:23 | NUR ---
Assumed care of pt at 0700. Pt confused and oriented to self only. Prn pain meds administered. Arnold catheter in place. Dressing c/d/i. Knee immobilizer in place. WBT on LLE, NWB on RLE. Call light within reach. Fall precautions in place. Will continue to monitor.
[2020-06-10 16:50] VITALS: BP 136/65
[2020-06-10 20:06] VITALS: BP 137/63
[2020-06-11 05:47] LABS: HEMATOCRIT 24.8 % (37.0-47.0); HEMOGLOBIN 7.8 gm/dL (12.0-15.0); MCH 28.3 pg (26.0-34.0); MCHC 31.2 g/dL (28.0-37.0); MCV 90.6 fL (80.0-100.0); RBC 2.74 mil/uL (4.20-5.00); RDW 15.7 % (10.5-14.5); WBC 13.2 thou/uL (4.0-11.0)
[2020-06-11 06:06] LABS: CALCIUM 8.4 mg/dL (8.5-10.1); CREATININE 0.8 mg/dL (0.6-1.0); POTASSIUM 4.3 mmol/L (3.5-5.1)
--- NOTE | 2020-06-11 06:42 | NUR ---
PT LYING IN BEF. FENTANYL PROVIDING PAIN RELIEF. RESTING COMFORTABLY. CALL LIGHT WITHIN REACH. FREQUENT OBSERVATION.
[2020-06-11 07:40] VITALS: BP 124/47
--- NOTE | 2020-06-11 13:12 | NUR ---
INITIAL ASSESSMENT: JUAN J reviewed chart and spoke with nursing and attending physician. Pt was admitted from [facility] after fall. Pt with left hip and right distal femur fracture. Pt is POD#2. Therapy is working with. 5N consult ordered to evaluate pt for admission to in acute rehab. JUAN J discussed with 5N rehabilitation engineer, as pt would not qualify for 5N due to residing in a joint terminal attack controller care facility. JUAN J spoke with pt's Frankie MAGDALENO, via phone. Introduced role of JUAN J. Pt has lived at [facility] for over 2 years. Pt is wheelchair bound and requires the toño lift for transfers. Plan is for pt to return to [facility] when medically stable. JUAN J faxed clinical/therapy info to [facility] for review and notified Emilee in admissions. JUAN J is following to assist as needed with discharge planning.
[2020-06-11 16:50] VITALS: BP 100/43
[2020-06-11 19:21] VITALS: BP 119/66
[2020-06-12 04:18] VITALS: BP 105/42
[2020-06-12 05:36] LABS: HEMATOCRIT 23.4 % (37.0-47.0); HEMOGLOBIN 7.6 gm/dL (12.0-15.0); MCH 29.2 pg (26.0-34.0); MCHC 32.5 g/dL (28.0-37.0); MCV 89.7 fL (80.0-100.0); RBC 2.61 mil/uL (4.20-5.00); RDW 15.4 % (10.5-14.5); WBC 10.4 thou/uL (4.0-11.0)
[2020-06-12 06:13] LABS: CALCIUM 8.3 mg/dL (8.5-10.1); CREATININE 0.9 mg/dL (0.6-1.0); MAGNESIUM 2.2 mg/dL (1.8-2.4); POTASSIUM 4.6 mmol/L (3.5-5.1)
--- NOTE | 2020-06-12 06:35 | NUR ---
PT ALERT TO SELF. L HIP DRSG CHANGED X 1,BECAUSE IT WAS SOILED.IMMOBILIZER TO RLE. LOW GRADE FEVER NO COUGH.Q2HR REPOSITIONING. PAIN RELIEF BY TRAMADOL.
[2020-06-12 08:14] VITALS: BP 113/53
[2020-06-12 08:18] VITALS: BP 115/56
[2020-06-12 08:26] VITALS: BP 113/53
--- NOTE | 2020-06-12 10:51 | NUR ---
cm lft vm for asher at [facility] re: d/c planning.
--- NOTE | 2020-06-12 13:01 | NUR ---
cherie financial planner to fax orders and covid test result to lazara grace w/pt's varsha, brandi to inform him pt will rtrn to facility today. "okay, great."/brandi.
--- NOTE | 2020-06-12 14:36 | NUR ---
PT DISCHARGING TODAY TO [facility] FAXED DC ORDERS/SUMMARY TO FACILITY SPOKE WITH SOFI SHE RECEIVED ORDERS AND COVID RESULT SHE ARRANGED TRANSPORT FOR 1600 TODAY. DPOA NOTIFIED BY JUAN J (JUDITH) OF DC AND TIME OF TRANSPORT. UNIT NOTIFIED AND CHART COPY PER US. RN TO CALL REPORT TO [phone].
--- NOTE | 2020-06-15 19:16 | HC ---
[facility] [place] [address] CONSULTATION Name: RANJANA KOTHARI Room #: 447-P [facility] IN M.R.#: [id number] Admission: 06/08/20 Attend Phys: Daniel Reyes MD Discharge: 06/12/20 Date of : 49 Report #: [id number] THIS REPORT FOR: cc: Sharri Briggs MD,Florence Hoover,Henry Mast MD ~ CC: Sharri Lee DATE OF SERVICE: 06/11/2020 WOUND CARE CONSULTATION CHIEF COMPLAINT: Generalized rash. HISTORY OF PRESENT ILLNESS: This is a 74-year-old female patient with a history of diabetes mellitus and schizophrenia, history of heavy alcohol use, who has had repeated falls. She fell with complaints of pain in her leg. She was noted to have a left hip fracture and she has undergone open reduction and internal fixation. She was noted to have a generalized rash. I have been asked to see her with regard to this. She was started on fluconazole as well as a topical steroid, triamcinolone, on the day of her admission. She is not able to provide any useful information about herself currently. ALLERGIES: Include CALCIUM CARBONATE, KEFLEX, VITAMIN D3, BIAXIN, DEMEROL, MORPHINE, VITAMIN K and SULFA. MEDICATIONS: Include albuterol, amiodarone, metoprolol, nystatin powder, oxycodone, furosemide. PAST MEDICAL HISTORY: Per her records, positive for history of seizure disorder, diabetes mellitus, anxiety, schizophrenia, history of heavy alcohol use, cognitive communication deficits, frequent falls, dyslipidemia, hypothyroidism, sinus tachycardia, hypertension, asthma, atrial flutter, peripheral vascular disease, history of intra-abdominal abscess. SOCIAL HISTORY: The patient has a past history of heavy alcohol use and she is a former smoker, 2 packs per day for over 30 years. FAMILY HISTORY: Unknown. REVIEW OF SYSTEMS: Not obtainable due to the patient's communication deficits. PHYSICAL EXAMINATION: VITAL SIGNS: At this time include temperature 37.4, pulse ____, respiratory [facility] [address] [place] [address] CONSULTATION Name: RANJANA KOTHARI Room #: 447-P [facility] IN M.R.#: [id number] Admission: 06/08/20 Attend Phys: Daniel Reyes MD Discharge: 06/12/20 Date of : 47 Report #: [id number] rate of 20, blood pressure 124/47. GENERAL: This is a chronically ill-appearing female patient who appears to be in minimal distress. HEENT: Head normocephalic. Nose and throat clear. NECK: Supple. LUNGS: Clear. ABDOMEN: Soft. EXTREMITIES: The patient has a generalized maculopapular rash across her abdomen and some of her skin folds as well as the groin and legs. She has similar lesions on the hands and most areas are scaling. There is some slight erythema to it. None of these appear to be overtly infected. NEUROLOGIC: The patient does awaken, but remains mostly somnolent. She appears to move symmetrically. She does not answer questions. LABORATORY DATA: Sodium 141, potassium 4.3, chloride 103, CO2 of 27, BUN 13, creatinine 0.8, glucose 178, white blood cell count 13.2 with a hemoglobin of 7.8, albumin is low at 2.5. CLINICAL IMPRESSION: 1. Generalized rash, drug reaction versus psoriatic. 2. Intertrigo. 3. Cognitive communication disorder. 4. Left hip fracture, status post open reduction and internal fixation. 5. Type 2 diabetes mellitus. 6. Severe protein-calorie malnutrition, albumin 2.5. 7. History of atrial fibrillation. 8. History of alcohol and tobacco use. RECOMMENDATIONS: At this point in time, we will recommend gentle cleansing of the areas with soap and water daily. She is on Diflucan 100 mg daily, which I think is a reasonable thing. Nystatin cream to the skin folds and triamcinolone cream to the generalized rash, I think would be appropriate and is already in place. Orthopedics will be managing her hip fracture ____ and the hospitalist will be managing her medical conditions including diabetes, hypertension, atrial fibrillation. We will recommend aggressive nutritional support to maximize wound healing. I appreciate being asked to see her in consultation. <ELECTRONICALLY SIGNED> By: Henry Hoover MD 06/15/20 1916 1029 1225 Henry Hoover MD /nt
== END 2020-06-12 18:56 | DRG 853 ==
LOC: ER 02:14 → 4S 05:40 → EROBS 05:40 → 4S 16:11
PROVIDERS: Emergency Medicine; Nurse Practitioner; Orthopaedic Surgery Sports Medicine; ADMIT Internal Medicine; ATTEND Internal Medicine
PROC: 30233N1 Transfusion of Nonautologous Red Blood Cells into Peripheral Vein, Percutaneous Approach (ICD-10-PCS; principal; 2020-06-09)
PROC: 0QS706Z Reposition Left Upper Femur with Intramedullary Internal Fixation Device, Open Approach (ICD-10-PCS; principal; 2020-06-09)
PROC: 2W3NX1Z Immobilization of Right Upper Leg using Splint (ICD-10-PCS; principal; 2020-06-09)
DX: A41.9 Sepsis, unspecified organism (principal); S72.142A Displaced intertrochanteric fracture of left femur, initial encounter for closed fracture; J96.01 Acute respiratory failure with hypoxia; G92 Toxic encephalopathy; N17.0 Acute kidney failure with tubular necrosis; S72.451A Displaced supracondylar fracture without intracondylar extension of lower end of right femur, initial encounter for closed fracture; N39.0 Urinary tract infection, site not specified; E87.0 Hyperosmolality and hypernatremia; E44.0 Moderate protein-calorie malnutrition; K63.2 Fistula of intestine; I48.20 Chronic atrial fibrillation, unspecified; D62 Acute posthemorrhagic anemia; I48.0 Paroxysmal atrial fibrillation; F20.9 Schizophrenia, unspecified; K21.9 Gastro-esophageal reflux disease without esophagitis; E78.5 Hyperlipidemia, unspecified; E11.51 Type 2 diabetes mellitus with diabetic peripheral angiopathy without gangrene; E03.9 Hypothyroidism, unspecified; M54.9 Dorsalgia, unspecified; I10 Essential (primary) hypertension; M19.90 Unspecified osteoarthritis, unspecified site; W19.XXXA Unspecified fall, initial encounter; F03.90 Unspecified dementia, unspecified severity, without behavioral disturbance, psychotic disturbance, mood disturbance, and anxiety; F41.9 Anxiety disorder, unspecified; G40.909 Epilepsy, unspecified, not intractable, without status epilepticus; F10.11 Alcohol abuse, in remission; L30.4 Erythema intertrigo; I25.10 Atherosclerotic heart disease of native coronary artery without angina pectoris; M85.862 Other specified disorders of bone density and structure, left lower leg; F32.9 Major depressive disorder, single episode, unspecified; I35.0 Nonrheumatic aortic (valve) stenosis; Z66 Do not resuscitate; I27.20 Pulmonary hypertension, unspecified; J44.9 Chronic obstructive pulmonary disease, unspecified; G89.4 Chronic pain syndrome; E66.01 Morbid (severe) obesity due to excess calories; E53.8 Deficiency of other specified B group vitamins; Z68.34 Body mass index [BMI] 34.0-34.9, adult; Y93.89 Activity, other specified; Y92.198 Other place in other specified residential institution as the place of occurrence of the external cause; Y99.8 Other external cause status; Z87.891 Personal history of nicotine dependence; Z90.49 Acquired absence of other specified parts of digestive tract; Z79.01 Long term (current) use of anticoagulants; Z99.3 Dependence on wheelchair; Z90.710 Acquired absence of both cervix and uterus; Z95.5 Presence of coronary angioplasty implant and graft; Z79.4 Long term (current) use of insulin; Z79.899 Other long term (current) drug therapy; Z79.82 Long term (current) use of aspirin; Z88.1 Allergy status to other antibiotic agents; Z88.5 Allergy status to narcotic agent; Z88.2 Allergy status to sulfonamides; Z88.8 Allergy status to other drugs, medicaments and biological substances; Z91.048 Other nonmedicinal substance allergy status; Z20.828 Contact with and (suspected) exposure to other viral communicable diseases
CPT/HCPCS: 10195; 50101; 50386; 51412; 51538; 52304; 56525; 57092; 5718; 57501; 58101; 62110; 62900; 70005